=== PATIENT | female | born 1970 | race Caucasian/White ===

== ENCOUNTER 2022-02-25 09:41 | Observation (INO) ==
[2022-02-25] MEDS ORDERED: ONDANSETRON INJ 2 MG/ML 2 ML VIAL IV STA (10:04)
[2022-02-25] MEDS ORDERED: SODIUM CHLORIDE 0.9% 500 ML IV STA (10:04)
[2022-02-25] MEDS ORDERED: MoRPHine SULFATE 4 MG/ML 1 ML CARP\\VIAL IV STA ×2 (10:04→12:11)
--- NOTE | 2022-02-25 10:08 | Emergency Department Note ---
Impression & Plan Abdominal pain, UTI (urinary tract infection) ADMIT ED Provider Note HPI: Patient is a 51-year-old female with history of recent gastric bypass procedure performed at [facility] in [place], this was done in November 2021, patient presents the emergency department today with chief complaint of ongoing abdominal discomfort, she states that she had some blood work done yesterday through her home nurse that showed "abnormalities". Patient states that she is concerned because she did not hear anything from her providers at [facility] and therefore she came to the emergency department with her ongoing abdominal pain and concern for her recent abnormal lab work. Patient states she is also had some chills, states she has had some nausea. On arrival here to the ED the patient is hemodynamically stable, she is in no acute distress, she does have a PICC line to the left upper extremity that she tells me is used for fluids and was previously used for TPN although the patient states that she took her self off of this 2 days ago because it was making her feel ill. She states she has had some difficulty with swallowing solid foods, states that she has multiple "strictures" in her stomach that been causing issues since her surgery. Patient states that she does have some nausea in addition to her ongoing abdominal pain that has been there for several months after surgery. Patient saturating well on room air on arrival, she is afebrile, she is otherwise hemodynamically stable and nontoxic-appearing on my initial assessment. ROS: -GI: Abdominal pain, nausea, recent surgery *10 point review systems was conducted and is otherwise negative unless stated above *Outpatient medications and allergy history reviewed PE: General: Alert, NAD HEENT: Normocephalic, atraumatic Eyes: Extraocular eye movement is intact, no scleral erythema Pulmonary: Clear to auscultation bilaterally, no wheezing Cardio: Regular rate and rhythm GI: Abdomen is soft, moderate tenderness diffusely to palpation without guarding or rigidity : No suprapubic tenderness MSK: No evidence of trauma or malformation of the extremities, no edema Skin: No evidence of rash, PICC line in place to left upper extremity without any surrounding erythema or drainage Neuro: Alert, no focal deficits Psychiatric: Cooperative security monitor: - An order was placed for continuous cardiac monitoring - Patient was noted to be in sinus rhythm with rate of 85 EKG: Rate: 80 Rhythm: Sinus rhythm with first-degree AV block Intervals: HI interval 224 ms, otherwise within normal limits ST changes: No ST elevation Time: 1114 Medical Decision Making: Patient presented to the emergency department with multiple issues, states she has been having some increasing abdominal comfort over the past several months that she had a gastric bypass surgery done in [place] through [facility]. Patient states she is also had some chills, she has had some nausea, shortly after arrival IV was established, lab work obtained, patient was placed on compliance monitor. Lab work is largely unremarkable, no critical electrolyte abnormalities are noted, no transaminitis, bilirubin is normal. No leukocytosis, hemoglobin is stable. CT imaging of the abdomen pelvis was obtained that does not show any evidence of any acute surgical abnormality within the abdomen or pelvis, post operative changes are noted given the patient's recent gastric bypass. On reassessment patient stated she was feeling improved following IV morphine, discussed outpatient follow-up plan with her providers through [facility]. Shortly after this discussion the patient stated to the bedside RN that she was having some chills, stated she was not feeling well for discharge. She became tachycardic, repeat temperature shows fever at 39.5, given this patient was given IV Tylenol, IV fluid, blood cultures ordered, lactic acid ordered, procalcitonin ordered. COVID-19 testing was ordered and is negative, this is per laboratory report on the phone, as there was some difficulty getting the test to crossover secondary to a technical issue with the EMR.Urinalysis was obtained and shows evidence of possible urinary tract infection. Will send for culture. Patient will be treated with ceftriaxone. Patient states that this time she does not feel well for discharge, given her tachycardia and fever I think it is reasonable to admit her for IV antibiotic therapy over concern for early sepsis. Urinalysis appears to be the source of infection at this time. Lactic acid is pending, procalcitonin is pending. Patient was ordered 2 L of IV fluid and none further secondary to concern for fluid overload given history of CHF. [facility], and the patient was admitted to the hospitalist service for further management. Diagnosis: 1. Urinary tract infection, acute 2. Acute on chronic abdominal pain 3. Fever 4. Tachycardia Disposition: Admission Valentino Ryder DO Emergency Medicine Past Med/Surg History Social History Smoking Status: Never smoker Feels Safe at Home: Yes Allergies Allergies Allergy/AdvReac Type Severity Reaction Status Date / Time amitriptyline Allergy Intermediate jittery, Unverified 02/25/22 12:01 restlessness, insomnia haloperidol [From Haldol] Allergy Intermediate agitation Unverified 02/25/22 12:01 latex Allergy Intermediate rash, Unverified 02/25/22 11:57 itching metoclopramide [From Reglan] Allergy Intermediate jittery, Unverified 02/25/22 12:01 restlessness, insomnia nortriptyline Allergy Intermediate jttery, Unverified 02/25/22 12:01 restlessness, insomnia prochlorperazine Allergy Intermediate jittery, Unverified 02/25/22 12:01 [From Compazine] restlessness, insomnia Home Meds Home Medications Medication Instructions Recorded Confirmed alprazolam 0.5 mg tablet 0.5 mg PO DAILY 02/25/22 02/25/22 alteplase 2 mg intra-catheter 2 mg INTRA-CATHETER DIRECTED 02/25/22 02/25/22 solution (Cathflo Activase) dicyclomine 20 mg tablet 20 mg PO BID PRN 02/25/22 02/25/22 epinephrine 0.3 mg/0.3 mL 0.3 mg IM Q4H PRN 02/25/22 02/25/22 injection, auto-injector furosemide 20 mg tablet 20 mg PO BID 02/25/22 02/25/22 gabapentin 300 mg capsule 600 mg PO BID 02/25/22 02/25/22 hyoscyamine sulfate 0.125 mg 0.125 mg SUBLINGUAL DAILY PRN 02/25/22 02/25/22 sublingual tablet metoprolol tartrate 25 mg tablet 25 mg PO BID 02/25/22 02/25/22 nitroglycerin 0.3 mg sublingual 0.3 mg SUBLINGUAL DIRECTED PRN 02/25/22 02/25/22 tablet ondansetron 4 mg disintegrating 4 mg TRANSLINGUAL DIRECTED PRN 02/25/22 tablet oxycodone 5 mg tablet 5 mg PO DIRECTED PRN 02/25/22 02/25/22 pantoprazole 20 mg tablet,delayed 20 mg PO BID 02/25/22 02/25/22 release pediatric multivitamin no.25-folic 1 tab PO DAILY 02/25/22 02/25/22 acid 300 mcg chewable tablet (Flintstones Multivitamin) sacubitril 24 mg-valsartan 26 mg 1 tab PO BID 02/25/22 02/25/22 tablet (Entresto) scopolamine base 1 mg over 3 days 1 patch TOPICAL Q72H PRN 02/25/22 02/25/22 transdermal patch sumatriptan succinate 100 mg tablet 100 mg PO DIRECTED PRN 02/25/22 02/25/22 topiramate 100 mg tablet 100 mg PO BID 02/25/22 02/25/22 zolpidem 10 mg tablet 10 mg PO HS 02/25/22 02/25/22 Previous Rx's Medication Instructions Recorded oxycodone-acetaminophen 5 mg-325 1 tab PO Q6H PRN #14 tab 02/25/22 mg tablet (Percocet) Results & Data (ED) Vital Signs Vital Signs - 24 hr 02/25/22 09:42 02/25/22 09:43 02/25/22 10:04 Temperature 36.7 C Temperature Source Temporal Artery Scan Pulse Rate 81 96 H 78 Pulse Rate [Apical] 78 Pulse Rhythm Regular Pulse Rhythm [Apical] Pulse Strength [Apical] Respiratory Rate 17 18 17 Respiratory Effort / Characteristics Non-Labored Respiratory Depth Normal Respiratory Pattern Regular Blood Pressure 129/82 Blood Pressure [Right Arm] 129/82 Blood Pressure Mean 97 Blood Pressure Mean [Right Arm] 97 Pulse Oximetry 96 99 97 Oxygen Delivery Method Room Air Room Air Room Air Sepsis Recent Fever Within 48 Hours No Sepsis New/Unexplained Change in Mental Status No Sepsis Action Taken by Nursing No Action Required 02/25/22 13:42 02/25/22 15:00 02/25/22 16:14 Temperature 39.5 C H 39.4 C H Temperature Source Oral Oral Pulse Rate Pulse Rate [Apical] 75 119 H 117 H Pulse Rhythm Pulse Rhythm [Apical] Regular Pulse Strength [Apical] Normal Normal Respiratory Rate 17 18 20 Respiratory Effort / Characteristics Non-Labored Non-Labored Respiratory Depth Normal Normal Respiratory Pattern Blood Pressure Blood Pressure [Right Arm] 129/82 129/87 Blood Pressure Mean Blood Pressure Mean [Right Arm] 97 101 Pulse Oximetry 99 95 94 Oxygen Delivery Method Room Air Room Air Room Air Sepsis Recent Fever Within 48 Hours Sepsis New/Unexplained Change in Mental Status Sepsis Action Taken by Nursing Laboratory Data Result diagrams: 02/25/22 10:50 02/25/22 10:50 Lab Results 02/25/22 02/25/22 02/25/22 Range/Units 10:50 10:50 10:50 WBC 4.40 L (4.8-10.8) K/uL RBC 3.95 L (4.2-5.4) M/uL Hgb 11.9 L (12.0-16.0) g/dL Hct 37.1 (37-47) % MCV 93.9 (80-100) fL MCH 30.1 (25-34) pg MCHC 32.1 (32-36) g/dL RDW Std Deviation 46.2 (36.4-46.3) fL RDW Coeff of [place] 13.3 (11.5-14.5) % Plt Count 208 (130-400) K/uL MPV 10.9 H (7.4-10.4) fL Immature Gran % (Auto) 0.2 % Neut % (Auto) 60.7 % Lymph % (Auto) 20.9 % [place] % (Auto) 17.3 % Eos % (Auto) 0.7 % Baso % (Auto) 0.2 % Neut # (Auto) 2.67 (1.4-6.5) K/uL Lymph # (Auto) 0.92 L (1.2-3.4) K/uL [place] # (Auto) 0.76 H (0.11-0.59) K/uL Eos # (Auto) 0.03 (0-0.5) K/uL Baso # (Auto) 0.01 (0-0.2) K/uL Immature Gran # (Auto) 0.01 (0.00-0.02) K/uL PT 12.0 (9.0-12.0) Seconds INR 1.1 (0.9-1.1) Sodium 140 (136-145) mmol/L Potassium 3.5 (3.5-5.1) mmol/L Chloride 109 H (98-107) mmol/L Carbon Dioxide 23 (21-32) mmol/L Anion Gap 8 (3-11) BUN 14 (6-23) mg/dl Creatinine 0.79 (0.6-1.2) mg/dl Est Cr Clr Drug Dosing 100.1 ml/min Est GFR ( Amer) 101.2 ml/min Est GFR (Non-Af Amer) 87.3 ml/min BUN/Creatinine Ratio 17.7 (10-20) Glucose 91 (70-99(Fasting)) mg/dl Calcium 8.4 L (8.5-10.1) mg/dl Total Bilirubin 0.7 (0.2-1.0) mg/dl AST 28 (13-39) U/L ALT 29 (7-52) U/L Alkaline Phosphatase 84 (34-104) U/L Total Protein 6.4 (6.0-8.3) gm/dl Albumin 3.6 (3.4-5.0) gm/dl Globulin 2.8 (2.5-4.0) gm/dl Albumin/Globulin Ratio 1.3 (0.9-2) Lipase 41 (11-82) U/L Urine Color Urine Appearance (Clear) Urine pH (4.5-7.5) Ur Specific [place] (1.000-1.030) Urine Protein (Negative) Urine Glucose (UA) (Negative) Urine Ketones (Negative) Urine Blood (Negative) Urine Nitrite (Negative) Urine Bilirubin (Negative) Urine Urobilinogen (Negative) Ur Leukocyte Esterase (Negative) Urine WBC (Auto) (0-5) /hpf Urine RBC (Auto) (0-4) /hpf U Hyaline Cast (Auto) (0-5) /lpf U Epithel Cells (Auto) (0-5) /lpf Urine Bacteria (Auto) (Negative) Urine Crystals Calcium Oxalate Crystal (None Prsent) 02/25/22 Range/Units 10:50 WBC (4.8-10.8) K/uL RBC (4.2-5.4) M/uL Hgb (12.0-16.0) g/dL Hct (37-47) % MCV (80-100) fL MCH (25-34) pg MCHC (32-36) g/dL RDW Std Deviation (36.4-46.3) fL RDW Coeff of [place] (11.5-14.5) % Plt Count (130-400) K/uL MPV (7.4-10.4) fL Immature Gran % (Auto) % Neut % (Auto) % Lymph % (Auto) % [place] % (Auto) % Eos % (Auto) % Baso % (Auto) % Neut # (Auto) (1.4-6.5) K/uL Lymph # (Auto) (1.2-3.4) K/uL [place] # (Auto) (0.11-0.59) K/uL Eos # (Auto) (0-0.5) K/uL Baso # (Auto) (0-0.2) K/uL Immature Gran # (Auto) (0.00-0.02) K/uL PT (9.0-12.0) Seconds INR (0.9-1.1) Sodium (136-145) mmol/L Potassium (3.5-5.1) mmol/L Chloride (98-107) mmol/L Carbon Dioxide (21-32) mmol/L Anion Gap (3-11) BUN (6-23) mg/dl Creatinine (0.6-1.2) mg/dl Est Cr Clr Drug Dosing ml/min Est GFR ( Amer) ml/min Est GFR (Non-Af Amer) ml/min BUN/Creatinine Ratio (10-20) Glucose (70-99(Fasting)) mg/dl Calcium (8.5-10.1) mg/dl Total Bilirubin (0.2-1.0) mg/dl AST (13-39) U/L ALT (7-52) U/L Alkaline Phosphatase (34-104) U/L Total Protein (6.0-8.3) gm/dl Albumin (3.4-5.0) gm/dl Globulin (2.5-4.0) gm/dl Albumin/Globulin Ratio (0.9-2) Lipase (11-82) U/L Urine Color Dark Yellow Urine Appearance Turbid A (Clear) Urine pH 5.5 (4.5-7.5) Ur Specific [place] 1.027 (1.000-1.030) Urine Protein Trace H (Negative) Urine Glucose (UA) Negative (Negative) Urine Ketones 2+ H (Negative) Urine Blood Negative (Negative) Urine Nitrite Positive A (Negative) Urine Bilirubin 2+ H (Negative) Urine Urobilinogen Negative (Negative) Ur Leukocyte Esterase 1+ H (Negative) Urine WBC (Auto) 10-30 H (0-5) /hpf Urine RBC (Auto) 5-10 H (0-4) /hpf U Hyaline Cast (Auto) 10-30 H (0-5) /lpf U Epithel Cells (Auto) >30 H (0-5) /lpf Urine Bacteria (Auto) 4+ H (Negative) Urine Crystals Not Reportable Calcium Oxalate Crystal Present A (None Prsent) Administered Medications Discontinued Medications Acetaminophen (Acetaminophen 500 Mg Tab) 1,000 mg PO NOW STA Stop: 02/25/22 15:22 Last Admin: 02/25/22 15:57 Dose: Not Given Documented by: [id number] Acetaminophen (Acetaminophen 1000 Mg/100 Ml Iv) Confirm Administered Dose 1,000 mg IV .STK-MED ONE Stop: 02/25/22 15:39 Last Admin: 02/25/22 15:43 Dose: 1,000 mg Documented by: [id number] Acetaminophen (Acetaminophen 500 Mg Tab) 1,000 mg PO NOW STA Stop: 02/25/22 15:49 Last Admin: 02/25/22 15:57 Dose: Not Given Documented by: [id number] Acetaminophen (Acetaminophen 1000 Mg/100 Ml Iv) 1,000 mg IV ONCE ONE Stop: 02/25/22 16:06 Last Admin: 02/25/22 15:45 Dose: 1,000 mg Documented by: [id number] Sodium Chloride (Nss) 500 mls @ 999 mls/hr IV .Q31M STA Stop: 02/25/22 10:34 Last Infusion: 02/25/22 12:14 Dose: 0 mls/hr Documented by: [id number] Admin: 02/25/22 11:00 Dose: 999 mls/hr Documented by: [id number] Promethazine HCl 6.25 mg/ (Sodium Chloride) 50.25 mls @ 201 mls/hr IV NOW STA Stop: 02/25/22 12:25 Last Infusion: 02/25/22 13:24 Dose: 0 mls/hr Documented by: [id number] Admin: 02/25/22 12:55 Dose: 201 mls/hr Documented by: [id number] Sodium Chloride (Nss 1000ml) 1,000 mls @ 999 mls/hr IV .Q1H1M ONE Stop: 02/25/22 14:52 Last Infusion: 02/25/22 15:30 Dose: 0 mls/hr Documented by: [id number] Admin: 02/25/22 14:33 Dose: 999 mls/hr Documented by: [id number] Ioversol (Optiray 320 100ml) 96 ml IV ONCE ONE Stop: 02/25/22 12:45 Last Admin: 02/25/22 12:47 Dose: 96 ml Documented by: [id number] Morphine Sulfate (Morphine Sulfate 4 Mg/Ml 1 Ml Carp\\Vial) 4 mg IV NOW STA Stop: 02/25/22 10:05 Last Admin: 02/25/22 11:01 Dose: 4 mg Documented by: [id number] Morphine Sulfate (Morphine Sulfate 4 Mg/Ml 1 Ml Carp\\Vial) 4 mg IV NOW STA Stop: 02/25/22 12:12 Last Admin: 02/25/22 12:19 Dose: 4 mg Documented by: [id number] Ondansetron HCl (Ondansetron Inj 2 Mg/Ml 2 Ml Vial) 4 mg IV NOW STA Stop: 02/25/22 10:05 Last Admin: 02/25/22 11:01 Dose: 4 mg Documented by: [id number] Imaging Data Radiologist's Impression: Abdomen/Pelvis CT 02/25/22 10:04 CT SCAN OF THE ABDOMEN AND PELVIS WITH IV CONTRAST CLINICAL HISTORY: Generalized abdominal pain. Recent gastric bypass surgery. COMPARISON STUDY: No priors. TECHNIQUE: Following the IV administration of 96 cc of Optiray 320, CT scan of the abdomen and pelvis is performed from the lung bases to the proximal femora. Images are reviewed in the axial, sagittal, and coronal planes. IV contrast was administered without complication. A dose lowering technique was utilized adhering to the principles of ALARA. CT DOSE: 696.48 mGy.cm FINDINGS: Lung bases: The heart is top normal in size and without pericardial effusion. There are scattered calcified granulomas. The lung bases are otherwise clear. Liver: The contrast-enhanced liver is enlarged, measuring 21.3 cm in length. The liver demonstrates diffusely diminished attenuation consistent with hepatic steatosis. There are foci of fatty sparing. There is no intrahepatic biliary ductal dilatation. The hepatic veins and portal veins are patent. Gallbladder: Surgically absent noting clips in the gallbladder fossa. Spleen: The spleen is mildly enlarged measuring 13.5 cm in length. Pancreas: Unremarkable. Adrenal glands: Unremarkable. Kidneys: The contrast enhanced kidneys are normal in size and without hydronephrosis. The kidneys enhance symmetrically. Abdominal vasculature: The abdominal aorta is normal in course and caliber. Stomach and bowel: There is a tiny hiatal hernia. Postoperative changes consistent with a history of Eldon-en-Y gastric bypass surgery. No bowel obstruction is seen. The appendix is well-visualized and normal. Peritoneum: There is no intraperitoneal free air or abdominal ascites. Lymphadenopathy: None. Pelvic viscera: The bladder is normal as visualized. The uterus is surgically absent. No adnexal lesion is seen. Skeletal structures: No lytic or blastic lesions are seen. IMPRESSION: 1. No acute infectious or inflammatory findings are identified in the abdomen or pelvis. 2. Postoperative change is consistent with a history of gastric bypass surgery. No bowel obstruction is seen. 3. Hepatomegaly and hepatic steatosis. 4. Mild splenomegaly. 5. Additional findings as above. ACT 112: Negative or not required by law. Electronically signed by: Yash Kovacs M.D. 02/25/2022 1:13 PM Chest X-Ray 02/25/22 16:15 XR chest 1V portable HISTORY: 51 years-old Female fever acute fever COMPARISON: CT abdomen and pelvis of same day TECHNIQUE: Portable AP view of the chest FINDINGS: The cardiac silhouette is upper limits of normal in size. Left-sided PICC distal tip is noted in the expected location of the upper to mid SVC. Mild linear subsegmental atelectasis versus scarring within the right midlung. No pneumothorax, pleural effusion, airspace consolidation or overt pulmonary edema. Bones of the chest appear grossly intact. Surgical suture material projects over the stomach. IMPRESSION: No acute process. ACT 112: Negative or not required by law. The above report was generated using voice recognition software. It may contain grammatical, syntax or spelling errors. Electronically signed by: Lino Mandujano M.D. 02/25/2022 4:47 PM Discharge Plan Visit Data Chief Complaint: Illness Stated Complaint: S/P GASTRIC BYPASS,CHILLS,FEVER,ABD PAIN,N/V ED Provider: Valentino Ryder Discharge Problem: Abdominal pain, UTI (urinary tract infection) Patient Disposition: Home - Self-Care Condition: Good Discharge Instructions Hao/Other Patient Handouts: Abdominal Pain Activity Restrictions/Additional Instructions: Please follow-up with your primary care doctor in 2 to 3 days for reassessment. Please follow-up with your bariatric surgery team through [facility] as advised/scheduled. Please return to the emergency department if you have any new or worsening symptoms. Forms Stand Alone Forms: My [facility], Virtual Emergency Department, Important Visit Information Prescriptions Prescriptions: New oxycodone-acetaminophen [Percocet] 5-325 mg tablet 1 tab PO Q6H PRN (Reason: pain) Qty: 14 RF: 0 No Action nitroglycerin 0.3 mg Tablet, Sublingual 0.3 mg sublingual DIRECTED PRN (Reason: Angina) RF: 0 sumatriptan succinate 100 mg tablet 100 mg PO DIRECTED PRN (Reason: Migraine Headache) RF: 0 pantoprazole 20 mg tablet,delayed release (DR/EC) 20 mg PO BID RF: 0 alprazolam 0.5 mg tablet 0.5 mg PO DAILY RF: 0 dicyclomine [Bentyl] 20 mg Tablet 20 mg PO BID PRN (Reason: Gi Upset) RF: 0 hyoscyamine sulfate 0.125 mg tablet, sublingual 0.125 mg sublingual DAILY PRN (Reason: Nausea) RF: 0 gabapentin 300 mg capsule 600 mg PO BID RF: 0 furosemide 20 mg Tablet 20 mg PO BID RF: 0 epinephrine [Epi E-Z Pen] 0.3 mg/0.3 mL Auto-Injector 0.3 mg IM Q4H PRN (Reason: Allergic Symptoms) RF: 0 zolpidem 10 mg tablet 10 mg PO HS RF: 0 scopolamine base 1 mg over 3 days patch 3 day 1 patch topical Q72H PRN (Reason: Nausea) RF: 0 ondansetron 4 mg tablet,disintegrating 4 mg translingual DIRECTED PRN (Reason: Nausea) RF: 0 topiramate 100 mg tablet 100 mg PO BID RF: 0 Cathflo Activase 2 mg recon soln 2 mg INTRA-CATHETER DIRECTED RF: 0 oxycodone 5 mg tablet 5 mg PO DIRECTED PRN (Reason: Pain) RF: 0 metoprolol tartrate 25 mg tablet 25 mg PO BID RF: 0 Flintstones Multivitamin 300 mcg Tablet,Chewable 1 tab PO DAILY RF: 0 Entresto 24-26 mg tablet 1 tab PO BID RF: 0 Referrals Referrals: Summer Villegas [Primary Care Provider] -
[2022-02-25 11:19] LABS: INR 1.1 (0.9-1.1)
[2022-02-25 11:37] LABS: Albumin Globulin Ratio 1.3 (0.9-2); Albumin Level 3.6 gm/dl (3.4-5.0); BUN Creatinine Ratio 17.7 (10-20); Bilirubin,Total 0.7 mg/dl (0.2-1.0); Calcium 8.4 mg/dl (8.5-10.1); Creatinine Clr Calc Pharmacy 100.1 ml/min; Est GFR (African American) 101.2 ml/min; Est GFR (Non-African American) 87.3 ml/min; Globulin 2.8 gm/dl (2.5-4.0); Potassium 3.5 mmol/L (3.5-5.1); Total Protein 6.4 gm/dl (6.0-8.3)
[2022-02-25 11:45] LABS: Basophils # (auto) 0.01 K/uL (0-0.2); Basophils % (auto) 0.2 %; Eosinophils # (auto) 0.03 K/uL (0-0.5); Eosinophils % (auto) 0.7 %; Hematocrit (blood only) 37.1 % (37-47); Hemoglobin 11.9 g/dL (12.0-16.0); Immature Granulocytes # (auto) 0.01 K/uL (0.00-0.02); Immature Granulocytes % (auto) 0.2 %; Lymphocytes # (auto) 0.92 K/uL (1.2-3.4); Lymphocytes % (auto) 20.9 %; Mean Corpuscular Hemoglobin 30.1 pg (25-34); Mean Corpuscular Hgb Conc 32.1 g/dL (32-36); Mean Corpuscular Volume 93.9 fL (80-100); Mean Platelet Volume 10.9 fL (7.4-10.4); Monocytes # (auto) 0.76 K/uL (0.11-0.59); Monocytes % (auto) 17.3 %; Neutrophils # (auto) 2.67 K/uL (1.4-6.5); Neutrophils % (auto) 60.7 %; Platelet Count 208 K/uL (130-400); RDW Coefficient of Variation 13.3 % (11.5-14.5); RDW Standard Deviation 46.2 fL (36.4-46.3); Red Blood Count 3.95 M/uL (4.2-5.4)
[2022-02-25] MEDS ORDERED: PROMETHAZINE HCL 6.25 MG in SODIUM CHLORIDE 0.9% 50 ML IV STA (12:11)
[2022-02-25] MEDS ORDERED: OPTIRAY 320 100ml IV ONE (12:44)
--- NOTE | 2022-02-25 13:16 | CT Scan Report ---
CT SCAN OF THE ABDOMEN AND PELVIS WITH IV CONTRAST CLINICAL HISTORY: Generalized abdominal pain. Recent gastric bypass surgery. COMPARISON STUDY: No priors. TECHNIQUE: Following the IV administration of 96 cc of Optiray 320, CT scan of the abdomen and pelvi s is performed from the lung bases to the proximal femora. Images are reviewed in the axial, sagittal , and coronal planes. IV contrast was administered without complication. A dose lowering technique wa s utilized adhering to the principles of ALARA. CT DOSE: 696.48 mGy.cm FINDINGS: Lung bases: The heart is top normal in size and without pericardial effusion. There are scattered trever cified granulomas. The lung bases are otherwise clear. Liver: The contrast-enhanced liver is enlarged, measuring 21.3 cm in length. The liver demonstrates d iffusely diminished attenuation consistent with hepatic steatosis. There are foci of fatty sparing. T here is no intrahepatic biliary ductal dilatation. The hepatic veins and portal veins are patent. Gallbladder: Surgically absent noting clips in the gallbladder fossa. Spleen: The spleen is mildly enlarged measuring 13.5 cm in length. Pancreas: Unremarkable. Adrenal glands: Unremarkable. Kidneys: The contrast enhanced kidneys are normal in size and without hydronephrosis. The kidneys enh ance symmetrically. Abdominal vasculature: The abdominal aorta is normal in course and caliber. Stomach and bowel: There is a tiny hiatal hernia. Postoperative changes consistent with a history of Eldon-en-Y gastric bypass surgery. No bowel obstruction is seen. The appendix is well-visualized and normal. Peritoneum: There is no intraperitoneal free air or abdominal ascites. Lymphadenopathy: None. Pelvic viscera: The bladder is normal as visualized. The uterus is surgically absent. No adnexal lesi on is seen. Skeletal structures: No lytic or blastic lesions are seen. IMPRESSION: 1. No acute infectious or inflammatory findings are identified in the abdomen or pelvis. 2. Postoperative change is consistent with a history of gastric bypass surgery. No bowel obstruction is seen. 3. Hepatomegaly and hepatic steatosis. 4. Mild splenomegaly. 5. Additional findings as above. ACT 112: Negative or not required by law. Electronically signed by: Yash Kovacs M.D. 02/25/2022 1:13 PM
[2022-02-25] MEDS ORDERED: SODIUM CHLORIDE 0.9% 1000ML 1,000 ML IV ONE ×2 (13:52→16:21)
[2022-02-25] MEDS ORDERED: PERCOCET 5/325MG HOMEPACK PO ONE (14:25)
[2022-02-25 15:12] LABS: Appearance Urine Turbid (Clear); Bacteria Urine Automated 4+ (Negative); Blood Urine Negative (Negative); Color Urine Dark Yellow; Epithelial Cell Urine Auto >30 /lpf (0-5); Glucose Urine UA Negative (Negative); Ketones Urine 2+ (Negative); Leukocyte Esterase Urine 1+ (Negative); Nitrite Urine Positive (Negative); Protein Urine Trace (Negative); Specific Gravity Urine 1.027 (1.000-1.030); Urobilinogen Urine Negative (Negative); pH Urine 5.5 (4.5-7.5)
[2022-02-25 15:14] LABS: Bilirubin Urine 2+ (Negative)
[2022-02-25] MEDS ORDERED: ACETAMINOPHEN 500 MG TAB PO STA ×2 (15:21→15:48)
[2022-02-25 15:23] LABS: Calcium Oxalate Crystals Urine Present (None Prsent)
[2022-02-25] MEDS ORDERED: ACETAMINOPHEN 1000 MG/100 ML IV IV ONE ×2 (15:38→16:05)
--- NOTE | 2022-02-25 16:20 | Electrocardiogram Report ---
Test Reason : Blood Pressure : / mmHG Vent. Rate : 080 BPM Atrial Rate : 080 BPM P-R Int : 224 ms QRS Dur : 094 ms QT Int : 406 ms P-R-T Axes : 051 -24 -06 degrees QTc Int : 468 ms Sinus rhythm with 1st degree A-V block Poor R wave progression, consider anterior MN vs. lead placement vs. LVH T-wave inversion in Anteroseptal leads , consider ischemia Abnormal ECG No previous ECGs available Confirmed by Eran Sewell ([id number]) on 02/25/2022 4:20:28 PM Referred By: REFERRED SELF Confirmed By:Eran Sewell
[2022-02-25] MEDS ORDERED: cefTRIAXone SODIUM 2,000 MG/70 ML BAG IV STA (16:21)
--- NOTE | 2022-02-25 16:49 | XRay Report ---
XR chest 1V portable HISTORY: 51 years-old Female fever acute fever COMPARISON: CT abdomen and pelvis of same day TECHNIQUE: Portable AP view of the chest FINDINGS: The cardiac silhouette is upper limits of normal in size. Left-sided PICC distal tip is noted in the expected location of the upper to mid SVC. Mild linear subsegmental atelectasis versus scarring withi n the right midlung. No pneumothorax, pleural effusion, airspace consolidation or overt pulmonary erik ma. Bones of the chest appear grossly intact. Surgical suture material projects over the stomach. IMPRESSION: No acute process. ACT 112: Negative or not required by law. The above report was generated using voice recognition software. It may contain grammatical, syntax o r spelling errors. Electronically signed by: Lino Mandujano M.D. 02/25/2022 4:47 PM
--- NOTE | 2022-02-25 18:03 | History & Physical Report ---
Date of Service February 25, 2022 Assessment & Plan (1) Sepsis: Plan: Patient presents with spectrum of complaints- but with fever for past 3 days noted with tachycardia and hypotensive episode in the EMD - - lactate negative, PCT elevated, WBC mild leukopenia, febrile - HX of previous gastric bypass surgery with negative CT abdomen for any leaks or stranding - Pulmonary with calcified granulomas- without opacities or dyspnea- aspergillus and fungitell sent- previous on TPN - PICC line in place but appears clean at insertion site- culture drawn from PICC- remove pending BC or persistent fevers- ECHO in am - Blood cultures x2 sets drawn - Urine is current source- with oxylate crystal as well seen in UA- could have passed renal stone - MRSA swab with prolonged hospitalization and instrumentation x2 - ECHO in am - Rocephin for now 2 GM- broaden out if needed but currently responding with decrease in temp/HR/BP (2) H/O gastric bypass: Plan: As above- could consider repeating barium swallow evaluation if source remains unclear - Surgery done in [facility] network - not on any other vitamin supplementation other than MVI- she reports not being able to take - remains with nausea- continue with Zofran, patient declined Compazine, Phenergan if refractory nausea - Will send B12, Vitamin D level, FE, and Thiamine (3) HFrEF (heart failure with reduced ejection fraction): Plan: By report from patient - likely NICM with reported EF at 35% - repeat ECHO in am - She has stopped previous disease modifying medications (4) Complications of gastric bypass surgery: Plan: As above- required second surgery for stricture she reports - may be beneficial to request reports if will aid in current managment - Remains with persistent nausea and decrease oral intake - Start with clears continue PPI (5) Migraine: Plan: Patient on Topamax and Sumatriptan at home - she reports that triptan does not work- this is what we have on formulary - continue above - at this time avoid further pharmacological mixing agents History of Present Illness Primary Care Provider: Summer Villegas 51 YOF with medical history of: HFrEF/NICM, HTN, Obesity, ovarian cysts, MGUS. Patient comes to the EMD today for complaints of 3 days of fevers and abdominal pain/back pain. The patient states that this has been ongoing for the past 3 days and is associated with pain that strated in her lower back and then worked its way around the front of abdomen down to her groin. She is unsure if she has passed any kidney stones. She was evaluated in the EMD and upon preparedness for discharge she became tachycardic, had fever, and decrease BP. She was given 2.5 L of crystalloid, had blood cultures performed, and UA. She had routine labs performed that included blood culture x2 sets, UA, CXR, PCT, CT of abdomen and pelvis with contrast and CXR. Her lab work is notable for WBC of 4.4, BMP unremarkable, PCT 4.2, no lactate. UA notable for turbid appearance, LE- NIT, RBC, WBC 10-30 with > 30 EPis and 4+ bacteria. She was started on Rocephin 2 GM IV. Hospitalist was consulted for admission. Patient will be admitted to continue evaluate source of above as well as treat for current complicated UTI. Continue Rocephin for now. MRSA swab with recent extended hospital admissions. Overall we have no records available for review. The patient normally gets most of her care through [facility] and follows with cardiology at [place]. The patient most recently had Eldon-en- Y gastric bypass surgery completed in [facility] in November 2021. She reports extended stay and re-operation secondary to strictures. This lead to her remaining to have difficulty swallowing and eating, remaining with pain in her esophagus and abdomen. She was discharged with TPN and IVF which, is managed through home health. She reports that about 3 weeks ago she has stopped her TPN. She remains with a PICC line to her left arm and that is ~2 months old. The site itself is without evidence of infection. Blood cultures were obtained from PICC as well as peripheral. She also endorses that she follows with cardiology for history of heart failure which she reports that her EF is 35% she was previously on BB, Entresto and this was stopped by her creative writer prior to her Gastric Bypass surgery. She also reports possible history of MGUS as well as workup for Lupus. 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 is: NEGATIVE Allergies Allergy/AdvReac Type Severity Reaction Status Date / Time amitriptyline Allergy Intermediate jittery, Unverified 02/25/22 12:01 restlessness, insomnia haloperidol [From Haldol] Allergy Intermediate agitation Unverified 02/25/22 12:01 latex Allergy Intermediate rash, Unverified 02/25/22 11:57 itching metoclopramide [From Reglan] Allergy Intermediate jittery, Unverified 02/25/22 12:01 restlessness, insomnia nortriptyline Allergy Intermediate jttery, Unverified 02/25/22 12:01 restlessness, insomnia prochlorperazine Allergy Intermediate jittery, Unverified 02/25/22 12:01 [From Compazine] restlessness, insomnia Home Medications Medication Instructions Recorded Confirmed Type alprazolam 0.5 mg tablet 0.5 mg PO DAILY 02/25/22 02/25/22 History alteplase 2 mg intra-catheter 2 mg INTRA-CATHETER DIRECTED 02/25/22 02/25/22 History solution (Cathflo Activase) dicyclomine 20 mg tablet 20 mg PO BID PRN 02/25/22 02/25/22 History epinephrine 0.3 mg/0.3 mL 0.3 mg IM Q4H PRN 02/25/22 02/25/22 History injection, auto-injector furosemide 20 mg tablet 20 mg PO BID 02/25/22 02/25/22 History gabapentin 300 mg capsule 600 mg PO BID 02/25/22 02/25/22 History hyoscyamine sulfate 0.125 mg 0.125 mg SUBLINGUAL DAILY PRN 02/25/22 02/25/22 History sublingual tablet metoprolol tartrate 25 mg tablet 25 mg PO BID 02/25/22 02/25/22 History nitroglycerin 0.3 mg sublingual 0.3 mg SUBLINGUAL DIRECTED PRN 02/25/22 02/25/22 History tablet ondansetron 4 mg disintegrating 4 mg TRANSLINGUAL DIRECTED PRN 02/25/22 02/25/22 History tablet oxycodone 5 mg tablet 5 mg PO DIRECTED PRN 02/25/22 02/25/22 History oxycodone-acetaminophen 5 mg-325 1 tab PO Q6H PRN #14 tab 02/25/22 Rx mg tablet (Percocet) pantoprazole 20 mg tablet,delayed 20 mg PO BID 02/25/22 02/25/22 History release pediatric multivitamin no.25-folic 1 tab PO DAILY 02/25/22 02/25/22 History acid 300 mcg chewable tablet ([employer] Multivitamin) sacubitril 24 mg-valsartan 26 mg 1 tab PO BID 02/25/22 02/25/22 History tablet (Entresto) scopolamine base 1 mg over 3 days 1 patch TOPICAL Q72H PRN 02/25/22 02/25/22 History transdermal patch sumatriptan succinate 100 mg tablet 100 mg PO DIRECTED PRN 02/25/22 02/25/22 History topiramate 100 mg tablet 100 mg PO BID 02/25/22 02/25/22 History zolpidem 10 mg tablet 10 mg PO HS 02/25/22 02/25/22 History Past Med/Surg History Medical History (Updated 02/26/22 @ 21:22 by Michelle Adorno MD) Complications of gastric bypass surgery HFrEF (heart failure with reduced ejection fraction) Iron deficiency anemia Joint pain Migraine NICM (nonischemic cardiomyopathy) On total parenteral nutrition (TPN) Ovarian cyst Surgical History (Updated 02/25/22 @ 18:10 by MARTIN Villalta) H/O gastric bypass H/O: hysterectomy Hx of cholecystectomy Social History Smoking Status: Never smoker Hx Alcohol Use: No Hx Substance Use: No Preferred Language: Thai Communication Ability: Effective Fare Collector Required: No Beliefs That Will Affect Care: None marital status: Current Living Situation: Other Feels Safe at Home: Yes Safety Concerns: Feels Safe At This Time Assistive Devices: None Review of Systems Review of Systems: REVIEW OF SYSTEMS: Constitutional: (+) fever, sweats or chills Eyes: No diplopia, no worsening or blurred vision ENT: normal hearing, no trouble swallowing Respiratory: No cough, sputum, dyspnea at rest or on exertion Cardiovascular: No chest pain, tightness or palpitations Abdomen: (+) pain, nausea, vomiting, No diarrhea or constipation Musculoskeletal: (+) leg and joint pain, Neurologic: No weakness, numbness/tingling, or balance problems Psychiatric: (+) anxiety Skin: No rash or itch Physical Exam Physical Exam: PHYSICAL EXAM: General: awake, alert, no apparent distress Head: Normocephalic, atraumatic ENT: PERRLA, EOMI, no pharyngeal exudate, mucous membranes moist Neuro: AAO x 3, speech clear and appropriate, strength intact bilaterally 5/5, sensation intact and equal all extremities and dermatomes, no pronator drift Chest: equal rise and fall of the chest, no accessory muscle use, no heaves or thrills, Clear to auscultation, on room air, Cardiac: Regular rate and rhythm, telemetry reviewed- sinus tach, skin warm dry, cap refill <3 seconds, peripheral pulses +2 no JVD, no murmur, no edema GI: NABS x 4 quadrants, soft, tender suprapubic : Spontaneously voiding, no pain, no CVA tenderness, Extremities: Normal inspection, no peripheral edema or erythema, calfs nontender to palpation Psych: anxious Skin: no rash or erythema Results & Data Results & Data ([facility]) Vital Signs (Past 12 Hours) Vital Signs Temp Pulse Pulse Resp BP BP Pulse Ox 02/25/22 16:14 39.4 C H 117 H 20 94 02/25/22 15:00 39.5 C H 119 H 18 129/87 95 02/25/22 13:42 75 17 129/82 99 02/25/22 10:04 78 17 97 02/25/22 09:43 36.7 C 96 H 18 129/82 99 02/25/22 09:42 81 78 17 129/82 96 Laboratory Results Laboratory Results - last 24 hr 02/25/22 02/25/22 02/25/22 10:50 10:50 10:50 WBC 4.40 L RBC 3.95 L Hgb 11.9 L Hct 37.1 MCV 93.9 MCH 30.1 MCHC 32.1 RDW Std Deviation 46.2 RDW Coeff of Candido 13.3 Plt Count 208 MPV 10.9 H Immature Gran % (Auto) 0.2 Neut % (Auto) 60.7 Lymph % (Auto) 20.9 [place] % (Auto) 17.3 Eos % (Auto) 0.7 Baso % (Auto) 0.2 Neut # (Auto) 2.67 Lymph # (Auto) 0.92 L [place] # (Auto) 0.76 H Eos # (Auto) 0.03 Baso # (Auto) 0.01 Immature Gran # (Auto) 0.01 PT 12.0 INR 1.1 Sodium 140 Potassium 3.5 Chloride 109 H Carbon Dioxide 23 Anion Gap 8 BUN 14 Creatinine 0.79 Est Cr Clr Drug Dosing 100.1 Est GFR ( Amer) 101.2 Est GFR (Non-Af Amer) 87.3 BUN/Creatinine Ratio 17.7 Glucose 91 Lactate Calcium 8.4 L Total Bilirubin 0.7 AST 28 ALT 29 Alkaline Phosphatase 84 Troponin I High Sens Total Protein 6.4 Albumin 3.6 Globulin 2.8 Albumin/Globulin Ratio 1.3 Lipase 41 Procalcitonin Urine Color Urine Appearance Urine pH Ur Specific [place] Urine Protein Urine Glucose (UA) Urine Ketones Urine Blood Urine Nitrite Urine Bilirubin Urine Urobilinogen Ur Leukocyte Esterase Urine WBC (Auto) Urine RBC (Auto) U Hyaline Cast (Auto) U Epithel Cells (Auto) Urine Bacteria (Auto) Urine Crystals Calcium Oxalate Crystal SARS-CoV-2, RNA, NAAT 02/25/22 02/25/22 02/25/22 10:50 14:30 16:21 WBC RBC Hgb Hct MCV MCH MCHC RDW Std Deviation RDW Coeff of Candido Plt Count MPV Immature Gran % (Auto) Neut % (Auto) Lymph % (Auto) [place] % (Auto) Eos % (Auto) Baso % (Auto) Neut # (Auto) Lymph # (Auto) Living[place] # (Auto) Eos # (Auto) Baso # (Auto) Immature Gran # (Auto) PT INR Sodium Potassium Chloride Carbon Dioxide Anion Gap BUN Creatinine Est Cr Clr Drug Dosing Est GFR ( Amer) Est GFR (Non-Af Amer) BUN/Creatinine Ratio Glucose Lactate Calcium Total Bilirubin AST ALT Alkaline Phosphatase Troponin I High Sens Total Protein Albumin Globulin Albumin/Globulin Ratio Lipase Procalcitonin 4.27 H Urine Color Dark Yellow Urine Appearance Turbid A Urine pH 5.5 Ur Specific [place] 1.027 Urine Protein Trace H Urine Glucose (UA) Negative Urine Ketones 2+ H Urine Blood Negative Urine Nitrite Positive A Urine Bilirubin 2+ H Urine Urobilinogen Negative Ur Leukocyte Esterase 1+ H Urine WBC (Auto) 10-30 H Urine RBC (Auto) 5-10 H U Hyaline Cast (Auto) 10-30 H U Epithel Cells (Auto) >30 H Urine Bacteria (Auto) 4+ H Urine Crystals Not Reportable Calcium Oxalate Crystal Present A SARS-CoV-2, RNA, NAAT NEGATIVE 02/25/22 02/25/22 17:09 Unknown WBC RBC Hgb Hct MCV MCH MCHC RDW Std Deviation RDW Coeff of Candido Plt Count MPV Immature Gran % (Auto) Neut % (Auto) Lymph % (Auto) [place] % (Auto) Eos % (Auto) Baso % (Auto) Neut # (Auto) Lymph # (Auto) [place] # (Auto) Eos # (Auto) Baso # (Auto) Immature Gran # (Auto) PT INR Sodium Potassium Chloride Carbon Dioxide Anion Gap BUN Creatinine Est Cr Clr Drug Dosing Est GFR ( Amer) Est GFR (Non-Af Amer) BUN/Creatinine Ratio Glucose Lactate 0.5 Calcium Total Bilirubin AST ALT Alkaline Phosphatase Troponin I High Sens 6.7 Total Protein Albumin Globulin Albumin/Globulin Ratio Lipase Procalcitonin Urine Color Urine Appearance Urine pH Ur Specific [place] Urine Protein Urine Glucose (UA) Urine Ketones Urine Blood Urine Nitrite Urine Bilirubin Urine Urobilinogen Ur Leukocyte Esterase Urine WBC (Auto) Urine RBC (Auto) U Hyaline Cast (Auto) U Epithel Cells (Auto) Urine Bacteria (Auto) Urine Crystals Calcium Oxalate Crystal SARS-CoV-2, RNA, NAAT Diagnostic Findings Abdomen/Pelvis CT 02/25/22 10:04 CT SCAN OF THE ABDOMEN AND PELVIS WITH IV CONTRAST CLINICAL HISTORY: Generalized abdominal pain. Recent gastric bypass surgery. COMPARISON STUDY: No priors. TECHNIQUE: Following the IV administration of 96 cc of Optiray 320, CT scan of the abdomen and pelvis is performed from the lung bases to the proximal femora. Images are reviewed in the axial, sagittal, and coronal planes. IV contrast was administered without complication. A dose lowering technique was utilized adhering to the principles of ALARA. CT DOSE: 696.48 mGy.cm FINDINGS: Lung bases: The heart is top normal in size and without pericardial effusion. There are scattered calcified granulomas. The lung bases are otherwise clear. Liver: The contrast-enhanced liver is enlarged, measuring 21.3 cm in length. The liver demonstrates diffusely diminished attenuation consistent with hepatic steatosis. There are foci of fatty sparing. There is no intrahepatic biliary ductal dilatation. The hepatic veins and portal veins are patent. Gallbladder: Surgically absent noting clips in the gallbladder fossa. Spleen: The spleen is mildly enlarged measuring 13.5 cm in length. Pancreas: Unremarkable. Adrenal glands: Unremarkable. Kidneys: The contrast enhanced kidneys are normal in size and without hydronephrosis. The kidneys enhance symmetrically. Abdominal vasculature: The abdominal aorta is normal in course and caliber. Stomach and bowel: There is a tiny hiatal hernia. Postoperative changes consistent with a history of Eldon-en-Y gastric bypass surgery. No bowel obstruction is seen. The appendix is well-visualized and normal. Peritoneum: There is no intraperitoneal free air or abdominal ascites. Lymphadenopathy: None. Pelvic viscera: The bladder is normal as visualized. The uterus is surgically absent. No adnexal lesion is seen. Skeletal structures: No lytic or blastic lesions are seen. IMPRESSION: 1. No acute infectious or inflammatory findings are identified in the abdomen or pelvis. 2. Postoperative change is consistent with a history of gastric bypass surgery. No bowel obstruction is seen. 3. Hepatomegaly and hepatic steatosis. 4. Mild splenomegaly. 5. Additional findings as above. ACT 112: Negative or not required by law. Electronically signed by: Yash Kovacs M.D. 02/25/2022 1:13 PM Chest X-Ray 02/25/22 16:15 XR chest 1V portable HISTORY: 51 years-old Female fever acute fever COMPARISON: CT abdomen and pelvis of same day TECHNIQUE: Portable AP view of the chest FINDINGS: The cardiac silhouette is upper limits of normal in size. Left-sided PICC distal tip is noted in the expected location of the upper to mid SVC. Mild linear subsegmental atelectasis versus scarring within the right midlung. No pneumothorax, pleural effusion, airspace consolidation or overt pulmonary edema. Bones of the chest appear grossly intact. Surgical suture material projects over the stomach. IMPRESSION: No acute process. ACT 112: Negative or not required by law. The above report was generated using voice recognition software. It may contain grammatical, syntax or spelling errors. Electronically signed by: Lino Mandujano M.D. 02/25/2022 4:47 PM Medications Administered Home Medications alprazolam 0.5 mg tablet 0.5 mg PO DAILY 02/25/22 [History Confirmed 02/25/22] alteplase 2 mg intra-catheter solution (Cathflo Activase) 2 mg INTRA-CATHETER DIRECTED 02/25/22 [History Confirmed 02/25/22] dicyclomine 20 mg tablet 20 mg PO BID PRN 02/25/22 [History Confirmed 02/25/22] epinephrine 0.3 mg/0.3 mL injection, auto-injector 0.3 mg IM Q4H PRN 02/25/22 [History Confirmed 02/25/22] furosemide 20 mg tablet 20 mg PO BID 02/25/22 [History Confirmed 02/25/22] gabapentin 300 mg capsule 600 mg PO BID 02/25/22 [History Confirmed 02/25/22] hyoscyamine sulfate 0.125 mg sublingual tablet 0.125 mg SUBLINGUAL DAILY PRN 02/25/22 [History Confirmed 02/25/22] metoprolol tartrate 25 mg tablet 25 mg PO BID 02/25/22 [History Confirmed 02/25/22] nitroglycerin 0.3 mg sublingual tablet 0.3 mg SUBLINGUAL DIRECTED PRN 02/25/22 [History Confirmed 02/25/22] ondansetron 4 mg disintegrating tablet 4 mg TRANSLINGUAL DIRECTED PRN 02/25/22 [History Confirmed 02/25/22] oxycodone 5 mg tablet 5 mg PO DIRECTED PRN 02/25/22 [History Confirmed 02/25/22] oxycodone-acetaminophen 5 mg-325 mg tablet (Percocet) 1 tab PO Q6H PRN #14 tab 02/25/22 [Rx] pantoprazole 20 mg tablet,delayed release 20 mg PO BID 02/25/22 [History Confirmed 02/25/22] pediatric multivitamin no.25-folic acid 300 mcg chewable tablet ([employer] Multivitamin) 1 tab PO DAILY 02/25/22 [History Confirmed 02/25/22] sacubitril 24 mg-valsartan 26 mg tablet (Entresto) 1 tab PO BID 02/25/22 [History Confirmed 02/25/22] scopolamine base 1 mg over 3 days transdermal patch 1 patch TOPICAL Q72H PRN 02/25/22 [History Confirmed 02/25/22] sumatriptan succinate 100 mg tablet 100 mg PO DIRECTED PRN 02/25/22 [History Confirmed 02/25/22] topiramate 100 mg tablet 100 mg PO BID 02/25/22 [History Confirmed 02/25/22] zolpidem 10 mg tablet 10 mg PO HS 02/25/22 [History Confirmed 02/25/22] Discontinued Medications Acetaminophen (Acetaminophen 500 Mg Tab) 1,000 mg PO NOW STA Stop: 02/25/22 15:22 Last Admin: 02/25/22 15:57 Dose: Not Given Documented by: [id number] Acetaminophen (Acetaminophen 1000 Mg/100 Ml Iv) Confirm Administered Dose 1,000 mg IV .STK-MED ONE Stop: 02/25/22 15:39 Last Admin: 02/25/22 15:43 Dose: 1,000 mg Documented by: [id number] Acetaminophen (Acetaminophen 500 Mg Tab) 1,000 mg PO NOW STA Stop: 02/25/22 15:49 Last Admin: 02/25/22 15:57 Dose: Not Given Documented by: [id number] Acetaminophen (Acetaminophen 1000 Mg/100 Ml Iv) 1,000 mg IV ONCE ONE Stop: 02/25/22 16:06 Last Admin: 02/25/22 15:45 Dose: 1,000 mg Documented by: [id number] Sodium Chloride (Nss) 500 mls @ 999 mls/hr IV .Q31M STA Stop: 02/25/22 10:34 Last Infusion: 02/25/22 12:14 Dose: 0 mls/hr Documented by: [id number] Admin: 02/25/22 11:00 Dose: 999 mls/hr Documented by: [id number] Promethazine HCl 6.25 mg/ (Sodium Chloride) 50.25 mls @ 201 mls/hr IV NOW STA Stop: 02/25/22 12:25 Last Infusion: 02/25/22 13:24 Dose: 0 mls/hr Documented by: [id number] Admin: 02/25/22 12:55 Dose: 201 mls/hr Documented by: [id number] Sodium Chloride (Nss 1000ml) 1,000 mls @ 999 mls/hr IV .Q1H1M ONE Stop: 02/25/22 14:52 Last Infusion: 02/25/22 15:30 Dose: 0 mls/hr Documented by: [id number] Admin: 02/25/22 14:33 Dose: 999 mls/hr Documented by: [id number] Sodium Chloride (Nss 1000ml) 1,000 mls @ 999 mls/hr IV .Q1H1M ONE Stop: 02/25/22 17:21 Last Admin: 02/25/22 17:42 Dose: 999 mls/hr Documented by: [id number] Ceftriaxone Sodium (Rocephin) 2,000 mg in 70 mls @ 140 mls/hr IV NOW STA Stop: 02/25/22 16:50 Last Admin: 02/25/22 17:41 Dose: 140 mls/hr Documented by: [id number] Ioversol (Optiray 320 100ml) 96 ml IV ONCE ONE Stop: 02/25/22 12:45 Last Admin: 02/25/22 12:47 Dose: 96 ml Documented by: [id number] Morphine Sulfate (Morphine Sulfate 4 Mg/Ml 1 Ml Carp\Vial) 4 mg IV NOW STA Stop: 02/25/22 10:05 Last Admin: 02/25/22 11:01 Dose: 4 mg Documented by: [id number] Morphine Sulfate (Morphine Sulfate 4 Mg/Ml 1 Ml Carp\Vial) 4 mg IV NOW STA Stop: 02/25/22 12:12 Last Admin: 02/25/22 12:19 Dose: 4 mg Documented by: [id number] Ondansetron HCl (Ondansetron Inj 2 Mg/Ml 2 Ml Vial) 4 mg IV NOW STA Stop: 02/25/22 10:05 Last Admin: 02/25/22 11:01 Dose: 4 mg Documented by: [id number] Oxycodone/Acetaminophen (Percocet 5/325mg Homepack) 1 homepack PO UD ONE Stop: 02/25/22 14:26 Last Admin: 02/25/22 17:42 Dose: Not Given Documented by: [id number] ECG Additional Comments: Sinus rhythm with 1st degree A-V block Poor R wave progression, consider anterior WI vs. lead placement vs. LVH T-wave inversion in Anteroseptal leads , consider ischemia Abnormal ECG No previous ECGs available Confirmed by Eran Sewell ([id number]) on 02/25/2022 4:20:28 PM Code Status & VTE Plan Code Status CODE: FULL VTE: SCDS, lovenox VTE Prophylaxis Plan VTE Prophylaxis will be ordered: Yes Supervising Physician Co-Signing Physician Notes Patient seen and examined at bedside. Obtained a physical examination and history during face to face encounter. I discussed plan of care with EDWARD Boyd I reviewed above note and agree with it. Patient will be admitted with sepsis. Ordered cultures. Placed on antibiotics. will monitor fever curve PG Care Time/CCT Total # of Minutes Spent Total Time Spent with Patient: Total time spent is greater than 50% in coordination of care (as documented) at patient's floor/unit and/or counseling patient: Coding Level of Care Code 08712 Initial Inpt Care Lvl 3 Diagnoses Sepsis A41.9 H/O gastric bypass Z98.84 HFrEF (heart failure with reduced ejection fraction) I50.20 Complications of gastric bypass surgery K91.89; Y83.2 Migraine G43.909
[2022-02-25] MEDS ORDERED: ACETAMINOPHEN 325 MG TAB PO PRN (18:56)
[2022-02-25] MEDS ORDERED: PROCHLORPERAZINE 5 MG in SYRINGE 4 ML IV ONE (19:05)
[2022-02-25] MEDS ORDERED: SUMAtriptan succinate 100 MG TAB PO STA (19:05)
[2022-02-25] MEDS: ONDANSETRON INJ 2 MG/ML 2 ML VIAL IV PRN (19:55)
[2022-02-25] MEDS: PANTOprazole 40 MG TAB PO SCH (19:56)
[2022-02-25] MEDS: TOPIRAMATE 100 MG TAB PO SCH (21:34)
[2022-02-25] MEDS: ZOLPIDEM TARTRATE 10 MG TAB PO SCH (21:34)
[2022-02-25 21:51] LABS: Iron 19 mcg/dl (35-150); Total Iron Binding Cap Calc 215 mcg/dl (250-450); Transferrin (FE) Percent Satur 9 % (15-50); Unsaturated Iron Binding Cap 196 mcg/dl (155-355)
[2022-02-26] MEDS: MAGNESIUM SULFATE / D5W 1 GM/100 ML BAG IV SCH ×2 (00:34→02:29)
[2022-02-26 00:56] LABS: Appearance Urine Clear (Clear); Bilirubin Urine Negative (Negative); Blood Urine Negative (Negative); Color Urine Yellow; Glucose Urine UA Negative (Negative); Ketones Urine 2+ (Negative); Leukocyte Esterase Urine Negative (Negative); Nitrite Urine Negative (Negative); Protein Urine Negative (Negative); Specific Gravity Urine 1.043 (1.000-1.030); Urobilinogen Urine Positive (Negative)
[2022-02-26] MEDS: ONDANSETRON INJ 2 MG/ML 2 ML VIAL IV PRN ×2 (02:35→11:10)
[2022-02-26] MEDS: oxyCODONE HCL IR 5 MG TAB (IMMEDIATE RELEASE) PO PRN (04:45)
[2022-02-26] MEDS: DICYCLOMINE HCL 20 MG TAB PO PRN (05:03)
[2022-02-26] MEDS: HYDROmorphone INJ 0.5 MG/0.5 ML SYR ONE ×2 (05:54→07:11)
[2022-02-26] MEDS: HYDROmorphone INJ 0.5 MG/0.5 ML SYR IV STA ×2 (05:56→06:00)
[2022-02-26 09:38] LABS: Hematocrit (blood only) 35.1 % (37-47); Hemoglobin 11.4 g/dL (12.0-16.0); Mean Corpuscular Hemoglobin 30.2 pg (25-34); Mean Corpuscular Hgb Conc 32.5 g/dL (32-36); Mean Corpuscular Volume 93.1 fL (80-100); Mean Platelet Volume 11.2 fL (7.4-10.4); Platelet Count 162 K/uL (130-400); RDW Coefficient of Variation 13.3 % (11.5-14.5); RDW Standard Deviation 45.6 fL (36.4-46.3); Red Blood Count 3.77 M/uL (4.2-5.4); White Blood Count 5.55 K/uL (4.8-10.8)
[2022-02-26 09:58] LABS: Basophils # (auto) 0.01 K/uL (0-0.2); Basophils % (auto) 0.2 %; Eosinophils # (auto) 0.04 K/uL (0-0.5); Eosinophils % (auto) 0.7 %; Immature Granulocytes # (auto) 0.02 K/uL (0.00-0.02); Immature Granulocytes % (auto) 0.4 %; Lymphocytes # (auto) 0.94 K/uL (1.2-3.4); Lymphocytes % (auto) 16.9 %; Monocytes % (auto) 14.4 %; Neutrophils # (auto) 3.74 K/uL (1.4-6.5); Neutrophils % (auto) 67.4 %
[2022-02-26] MEDS: ALPRAZolam 0.5 MG TABLET PO SCH (09:58)
[2022-02-26 10:00] LABS: BUN Creatinine Ratio 14.9 (10-20); C Reactive Protein 15.35 mg/dl (0-0.5); Creatinine Clr Calc Pharmacy 117.9 ml/min; Est GFR (African American) 118.8 ml/min; Est GFR (Non-African American) 102.5 ml/min; Magnesium 2.4 mg/dl (1.7-2.4); Potassium 3.4 mmol/L (3.5-5.1)
[2022-02-26 10:17] LABS: Ferritin 517.3 ng/ml (8-388)
[2022-02-26] MEDS ORDERED: diphenhydrAMINE 50 MG/ML VIAL IV STA (10:55)
[2022-02-26] MEDS: NORMOSOL-R 1,000 ML IV SCH ×2 (11:09→21:53)
[2022-02-26] MEDS: PANTOprazole 40 MG TAB PO SCH (11:10)
[2022-02-26] MEDS: TOPIRAMATE 100 MG TAB PO SCH ×2 (11:10→21:41)
[2022-02-26] MEDS: ENOXAPARIN INJ 40 MG/0.4 ML SYR SQ SCH (11:10)
[2022-02-26 11:38] LABS: Folate (Folic Acid) 15.52 ng/ml (>5.38)
[2022-02-26] MEDS ORDERED: ACETAMINOPHEN 1,000 MG/100 ML VIAL IV PRN (15:02)
--- NOTE | 2022-02-26 15:09 | Hospitalist Progress Note ---
Date of Service February 26, 2022 Assessment & Plan (1) Sepsis: Plan: Patient presents with headache, bilateral flank and lower abdominal pain, and fever for past 3 days noted with tachycardia and hypotensive episode in the ER - - lactate negative, PCT elevated at 4, WBC mild leukopenia, febrile, CRP elevated at 15 -COVID-19 negative - HX of recent gastric bypass surgery 11/2021, here with negative CT abdomen/pelvis for any leaks or stranding - Pulmonary with calcified granulomas- without opacities or dyspnea- aspergillus and fungitell sent- previously on TPN for poor nutritional status and difficulty taking p.o. due to esophageal stricture status post recent gastric bypass surgery-stopped TPN approximately 3 weeks prior - PICC line remains in place but appears clean at insertion site- culture drawn from PICC- remove pending BC or persistent fevers. At risk for fungal infection due to previous TPN and indwelling PICC line -Does have headache but has a history of migraines and I feel this is a migraine induced by fever. She has no nuchal rigidity and looks too well to have a bacterial meningitis-no need for spinal tap at this time - Blood cultures x2 sets drawn-no growth to date -UA on admission shows ketones, nitrite, 2+ bilirubin, a lot of epithelial cells as well as WBC cells and 4+ bacteria along with calcium oxalate crystals-urine culture with pinpoint growth - MRSA swab negative - ECHO pending to look for valvular vegetation -Continue Rocephin for now 2 GM- broaden out if needed but currently responding with decrease in temp/HR/BP-fever seems to be resolving now -Check viral respiratory panel/bio fire-negative -Check Lyme titer-negative -Check Anaplasma smear-negative, Anaplasma DNA pending, however does not have elevated LFTs or low platelets so doubt anaplasmosis -Follow CBC, CMP, CRP, ESR, procalcitonin in the morning (2) Migraine: Plan: Patient on Topamax for prophylaxis With severe migraine headache constant for the last 4 days since her febrile illness began Nonfocal neurological exam So far has tried Benadryl, started IV fluids, received IV magnesium, Tylenol, and Zofran with no relief -Avoid NSAIDs due to gastric bypass surgery -Gave trial of Fioricet today which helped significantly -Continue IV fluids -Continue Benadryl as needed, Phenergan as needed -Consider IV steroids only as a last resort as this would also put her at risk for anastomotic ulcers given her recent gastric bypass surgery -Hopefully as fevers resolve, migraine will also resolve, however she reports she had a month long severe migraine headache when she had COVID a year and a half ago -CT head was not done on admission, but as she improved with Fioricet and has a nonfocal neurological exam, I do not feel she needs at this time, but could consider brain imaging and neuro consult if headache not improving (3) H/O gastric bypass: Plan: Surgery was done at [facility] in [place] in 11/2021. She then had a revision with lysis of adhesions due to ongoing abdominal pains She had a month-long stay in [facility] in December for this revision and also had multiple dilations of a stricture near esophagus which was causing significant issues with p.o. intake and nutritional status She ended up on TPN but is now off of that for the last 3 weeks. 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 - repeat ECHO here shows mildly reduced LV function and global hypokinesis of the LV, EF is 40-45% - She has stopped previous disease modifying medications due to hypotension back in the fall and has not followed with cardiology in approximately 6 months Troponin here is negative x2 Follow daily weights, I's and O's (5) Complications of gastric bypass surgery: Plan: As above- required second surgery for lysis of adhesions and revision she reports - Remains with persistent nausea and decrease oral intake but can take soft foods-advance diet -Continue PPI but she prefers it to be IV at this time and I will increase to twice daily -Has chronic ongoing burning sensation in the epigastric region ever since her surgery-not new -Vitamin B1, and B6 levels are pending B12 and folate are normal (6) Iron deficiency anemia: Plan: Transferrin saturation low at 9% Needs IV iron but will not give at this time as she reports it makes her feel badly when she gets it Will need IV iron down the road if she cannot tolerate oral iron very well (7) Obesity: Plan: BMI 32.3-improving and has lost 40 pounds since her gastric bypass surgery 3 months ago (8) Hypokalemia: Plan: Potassium low today at 3.4 Replaced with IV potassium chloride 20 mill equivalents Follow BMP and magnesium in the morning Plan: DVT prophylaxis-Lovenox Disposition-continued stay Admission and Anticipated Discharge Date Admission Date: February 25, 2022 Subjective Patient reports she is having an ongoing severe migraine headache that is bitemporal and frontal as well as posterior and associated with nausea but no vomiting. So far, Benadryl helped just slightly. Tylenol did not help much, and Zofran did not do much for her nausea. She reports the headache has been constant for 4 days straight along with the fevers. She has a long history of migraines and did have a migraine that lasted for 30 days when she had COVID a year and a half ago. She does feel like the fevers are getting better but feels like it might come back again today but has not yet. She has chronic burning sensation in her upper mid abdomen since her surgery and this is unchanged. She denies diarrhea. No skin rashes, no joint pains. Is asking for her diet to be changed from liquids to solids/soft foods. Denies chest pain. No urinary symptoms. Telemetry with normal sinus rhythm, PVCs, rates in the 80s to 110s. Review of Systems Review of Systems: All systems reviewed & are unremarkable except as noted in HPI & below Physical Exam Constitutional: WD/WN, vitals as above Eyes: PERRL, conjunctivae normal, anicteric sclerae ENMT: external ear and nose normal, oropharynx normal Neck: trachea midline, no thyromegaly normal visual inspection; neck nontender and no nuchal rigidity Respiratory: normal respiratory effort, lungs clear to auscultation Cardiovascular: RRR, no murmur, no edema Left upper extremity with PICC line in place without any surrounding erythema or tenderness Chest (Breasts): Chest: normal inspection of chest Gastrointestinal (Abdomen): normal bowel sounds, soft, nontender, no hepatosplenomegaly Musculoskeletal: Extremities: extremities normal to inspection; no cyanosis and no clubbing Skin: no rashes, warm and dry Neurologic: moves all extremities and awake; no focal motor deficits Psychiatric: A+Ox3, euthymic affect Lymphatic: no lymphedema Results & Data Results & Data ([facility]) Vital Signs (Past 12 Hours) Vital Signs Temp Pulse Pulse Pulse Resp BP Pulse Ox 02/26/22 15:03 36.7 C 80 20 125/81 96 02/26/22 11:22 36.6 C 73 18 121/81 98 02/26/22 07:00 93 H 02/26/22 06:42 36.9 C 92 H 18 114/76 94 Laboratory Results 02/26/22 02/26/22 02/26/22 Range/Units 15:13 15:06 14:46 WBC (4.8-10.8) K/uL RBC (4.2-5.4) M/uL Hgb (12.0-16.0) g/dL Hct (37-47) % MCV (80-100) fL MCH (25-34) pg MCHC (32-36) g/dL RDW Std Deviation (36.4-46.3) fL RDW Coeff of Candido (11.5-14.5) % Plt Count (130-400) K/uL MPV (7.4-10.4) fL Immature Gran % (Auto) % Neut % (Auto) % Lymph % (Auto) % Kleberg % (Auto) % Eos % (Auto) % Baso % (Auto) % Neut # (Auto) (1.4-6.5) K/uL Lymph # (Auto) (1.2-3.4) K/uL Kleberg # (Auto) (0.11-0.59) K/uL Eos # (Auto) (0-0.5) K/uL Baso # (Auto) (0-0.2) K/uL Immature Gran # (Auto) (0.00-0.02) K/uL ESR (0-30) mm/hr Sodium (136-145) mmol/L Potassium (3.5-5.1) mmol/L Chloride (98-107) mmol/L Carbon Dioxide (21-32) mmol/L Anion Gap (3-11) BUN (6-23) mg/dl Creatinine (0.6-1.2) mg/dl Est Cr Clr Drug Dosing ml/min Est GFR ( Amer) ml/min Est GFR (Non-Af Amer) ml/min BUN/Creatinine Ratio (10-20) Glucose (70-99(Fasting)) mg/dl Calcium (8.5-10.1) mg/dl Magnesium (1.7-2.4) mg/dl Iron (35-150) mcg/dl TIBC (250-450) mcg/dl Unsaturated IBC (155-355) mcg/dl Transferrin % Sat (15-50) % Ferritin (8-388) ng/ml Troponin I High Sens (0-14) pg/ml C-Reactive Protein (0-0.5) mg/dl Vitamin B1 Whole Bld Vitamin B1 Vitamin B6 Vitamin B12 (180-914) pg/ml Folate (>5.38) ng/ml Procalcitonin (0-0.5) ng/ml Urine Color Urine Appearance (Clear) Urine pH (4.5-7.5) Ur Specific [place] (1.000-1.030) Urine Protein (Negative) Urine Glucose (UA) (Negative) Urine Ketones (Negative) Urine Blood (Negative) Urine Nitrite (Negative) Urine Bilirubin (Negative) Urine Urobilinogen (Negative) Ur Leukocyte Esterase (Negative) Nasal Screen MRSA (PCR) (Negative) Adenovirus (PCR) Not Detected (NotDetected) Anaplasma Smear See Comment A. phagocytophilum DNA B. pertussis DNA (PCR) Not Detected (NotDetected) B.parapertussis DNA PCR Not Detected (NotDetected) Lyme Disease IgG Ab Negative (Negative) Lyme Disease IgM Ab Negative (Negative) C. pneumoniae DNA (PCR) Not Detected (NotDetected) Coronavirus OC43 (PCR) Not Detected (NotDetected) Coronavirus HKU1 (PCR) Not Detected (NotDetected) Coronavirus 229E (PCR) Not Detected (NotDetected) SARS-CoV-2 (PCR) Not Detected (NotDetected) Coronavirus NL63 (PCR) Not Detected (NotDetected) Human Metapneumovir PCR Not Detected (NotDetected) Influenza Type A (PCR) Not Detected (NotDetected) Influenza Type B (PCR) Not Detected (NotDetected) M. pneumoniae (PCR) Not Detected (NotDetected) Parainfluenza 1 (PCR) Not Detected (NotDetected) Parainfluenza 2 (PCR) Not Detected (NotDetected) Parainfluenza 3 (PCR) Not Detected (NotDetected) Parainfluenza 4 (PCR) Not Detected (NotDetected) A. galactomannan Ag A. galactomannan Ag Idx RSV (PCR) Not Detected (NotDetected) Entero/Rhino (PCR) Not Detected (NotDetected) Beta-(1,3)-D-Glucan B-(1,3)-D-Glucan Intrp 02/26/22 02/26/22 02/26/22 Range/Units 10:15 10:04 08:34 WBC (4.8-10.8) K/uL RBC (4.2-5.4) M/uL Hgb (12.0-16.0) g/dL Hct (37-47) % MCV (80-100) fL MCH (25-34) pg MCHC (32-36) g/dL RDW Std Deviation (36.4-46.3) fL RDW Coeff of Candido (11.5-14.5) % Plt Count (130-400) K/uL MPV (7.4-10.4) fL Immature Gran % (Auto) % Neut % (Auto) % Lymph % (Auto) % Kleberg % (Auto) % Eos % (Auto) % Baso % (Auto) % Neut # (Auto) (1.4-6.5) K/uL Lymph # (Auto) (1.2-3.4) K/uL Kleberg # (Auto) (0.11-0.59) K/uL Eos # (Auto) (0-0.5) K/uL Baso # (Auto) (0-0.2) K/uL Immature Gran # (Auto) (0.00-0.02) K/uL ESR (0-30) mm/hr Sodium (136-145) mmol/L Potassium (3.5-5.1) mmol/L Chloride (98-107) mmol/L Carbon Dioxide (21-32) mmol/L Anion Gap (3-11) BUN (6-23) mg/dl Creatinine (0.6-1.2) mg/dl Est Cr Clr Drug Dosing ml/min Est GFR ( Amer) ml/min Est GFR (Non-Af Amer) ml/min BUN/Creatinine Ratio (10-20) Glucose (70-99(Fasting)) mg/dl Calcium (8.5-10.1) mg/dl Magnesium (1.7-2.4) mg/dl Iron (35-150) mcg/dl TIBC (250-450) mcg/dl Unsaturated IBC (155-355) mcg/dl Transferrin % Sat (15-50) % Ferritin (8-388) ng/ml Troponin I High Sens 4.7 (0-14) pg/ml C-Reactive Protein (0-0.5) mg/dl Vitamin B1 Whole Bld Vitamin B1 Vitamin B6 Vitamin B12 (180-914) pg/ml Folate (>5.38) ng/ml Procalcitonin (0-0.5) ng/ml Urine Color Urine Appearance (Clear) Urine pH (4.5-7.5) Ur Specific [place] (1.000-1.030) Urine Protein (Negative) Urine Glucose (UA) (Negative) Urine Ketones (Negative) Urine Blood (Negative) Urine Nitrite (Negative) Urine Bilirubin (Negative) Urine Urobilinogen (Negative) Ur Leukocyte Esterase (Negative) Nasal Screen MRSA (PCR) (Negative) Adenovirus (PCR) (NotDetected) Anaplasma Smear A. phagocytophilum DNA Pending B. pertussis DNA (PCR) (NotDetected) B.parapertussis DNA PCR (NotDetected) Lyme Disease IgG Ab (Negative) Lyme Disease IgM Ab (Negative) C. pneumoniae DNA (PCR) (NotDetected) Coronavirus OC43 (PCR) (NotDetected) Coronavirus HKU1 (PCR) (NotDetected) Coronavirus 229E (PCR) (NotDetected) SARS-CoV-2 (PCR) (NotDetected) Coronavirus NL63 (PCR) (NotDetected) Human Metapneumovir PCR (NotDetected) Influenza Type A (PCR) (NotDetected) Influenza Type B (PCR) (NotDetected) M. pneumoniae (PCR) (NotDetected) Parainfluenza 1 (PCR) (NotDetected) Parainfluenza 2 (PCR) (NotDetected) Parainfluenza 3 (PCR) (NotDetected) Parainfluenza 4 (PCR) (NotDetected) A. galactomannan Ag Pending A. galactomannan Ag Idx Pending RSV (PCR) (NotDetected) Entero/Rhino (PCR) (NotDetected) Beta-(1,3)-D-Glucan B-(1,3)-D-Glucan Intrp 02/26/22 02/26/22 02/26/22 Range/Units 08:34 08:34 08:34 WBC (4.8-10.8) K/uL RBC (4.2-5.4) M/uL Hgb (12.0-16.0) g/dL Hct (37-47) % MCV (80-100) fL MCH (25-34) pg MCHC (32-36) g/dL RDW Std Deviation (36.4-46.3) fL RDW Coeff of Candido (11.5-14.5) % Plt Count (130-400) K/uL MPV (7.4-10.4) fL Immature Gran % (Auto) % Neut % (Auto) % Lymph % (Auto) % Kleberg % (Auto) % Eos % (Auto) % Baso % (Auto) % Neut # (Auto) (1.4-6.5) K/uL Lymph # (Auto) (1.2-3.4) K/uL Kleberg # (Auto) (0.11-0.59) K/uL Eos # (Auto) (0-0.5) K/uL Baso # (Auto) (0-0.2) K/uL Immature Gran # (Auto) (0.00-0.02) K/uL ESR (0-30) mm/hr Sodium (136-145) mmol/L Potassium (3.5-5.1) mmol/L Chloride (98-107) mmol/L Carbon Dioxide (21-32) mmol/L Anion Gap (3-11) BUN (6-23) mg/dl Creatinine (0.6-1.2) mg/dl Est Cr Clr Drug Dosing ml/min Est GFR ( Amer) ml/min Est GFR (Non-Af Amer) ml/min BUN/Creatinine Ratio (10-20) Glucose (70-99(Fasting)) mg/dl Calcium (8.5-10.1) mg/dl Magnesium (1.7-2.4) mg/dl Iron (35-150) mcg/dl TIBC (250-450) mcg/dl Unsaturated IBC (155-355) mcg/dl Transferrin % Sat (15-50) % Ferritin (8-388) ng/ml Troponin I High Sens (0-14) pg/ml C-Reactive Protein (0-0.5) mg/dl Vitamin B1 Whole Bld Vitamin B1 Vitamin B6 Vitamin B12 619 (180-914) pg/ml Folate 15.52 (>5.38) ng/ml Procalcitonin 4.37 H (0-0.5) ng/ml Urine Color Urine Appearance (Clear) Urine pH (4.5-7.5) Ur Specific [place] (1.000-1.030) Urine Protein (Negative) Urine Glucose (UA) (Negative) Urine Ketones (Negative) Urine Blood (Negative) Urine Nitrite (Negative) Urine Bilirubin (Negative) Urine Urobilinogen (Negative) Ur Leukocyte Esterase (Negative) Nasal Screen MRSA (PCR) (Negative) Adenovirus (PCR) (NotDetected) Anaplasma Smear A. phagocytophilum DNA B. pertussis DNA (PCR) (NotDetected) B.parapertussis DNA PCR (NotDetected) Lyme Disease IgG Ab (Negative) Lyme Disease IgM Ab (Negative) C. pneumoniae DNA (PCR) (NotDetected) Coronavirus OC43 (PCR) (NotDetected) Coronavirus HKU1 (PCR) (NotDetected) Coronavirus 229E (PCR) (NotDetected) SARS-CoV-2 (PCR) (NotDetected) Coronavirus NL63 (PCR) (NotDetected) Human Metapneumovir PCR (NotDetected) Influenza Type A (PCR) (NotDetected) Influenza Type B (PCR) (NotDetected) M. pneumoniae (PCR) (NotDetected) Parainfluenza 1 (PCR) (NotDetected) Parainfluenza 2 (PCR) (NotDetected) Parainfluenza 3 (PCR) (NotDetected) Parainfluenza 4 (PCR) (NotDetected) A. galactomannan Ag A. galactomannan Ag Idx RSV (PCR) (NotDetected) Entero/Rhino (PCR) (NotDetected) Beta-(1,3)-D-Glucan Pending B-(1,3)-D-Glucan Intrp Pending 02/26/22 02/26/22 02/26/22 Range/Units 08:34 08:34 08:34 WBC 5.55 (4.8-10.8) K/uL RBC 3.77 L (4.2-5.4) M/uL Hgb 11.4 L (12.0-16.0) g/dL Hct 35.1 L (37-47) % MCV 93.1 (80-100) fL MCH 30.2 (25-34) pg MCHC 32.5 (32-36) g/dL RDW Std Deviation 45.6 (36.4-46.3) fL RDW Coeff of Candido 13.3 (11.5-14.5) % Plt Count 162 (130-400) K/uL MPV 11.2 H (7.4-10.4) fL Immature Gran % (Auto) 0.4 % Neut % (Auto) 67.4 % Lymph % (Auto) 16.9 % Kleberg % (Auto) 14.4 % Eos % (Auto) 0.7 % Baso % (Auto) 0.2 % Neut # (Auto) 3.74 (1.4-6.5) K/uL Lymph # (Auto) 0.94 L (1.2-3.4) K/uL Kleberg # (Auto) 0.80 H (0.11-0.59) K/uL Eos # (Auto) 0.04 (0-0.5) K/uL Baso # (Auto) 0.01 (0-0.2) K/uL Immature Gran # (Auto) 0.02 (0.00-0.02) K/uL ESR 33 H (0-30) mm/hr Sodium 136 (136-145) mmol/L Potassium 3.4 L (3.5-5.1) mmol/L Chloride 107 (98-107) mmol/L Carbon Dioxide 23 (21-32) mmol/L Anion Gap 6 (3-11) BUN 10 (6-23) mg/dl Creatinine 0.67 (0.6-1.2) mg/dl Est Cr Clr Drug Dosing 117.9 ml/min Est GFR ( Amer) 118.8 ml/min Est GFR (Non-Af Amer) 102.5 ml/min BUN/Creatinine Ratio 14.9 (10-20) Glucose 94 (70-99(Fasting)) mg/dl Calcium 8.0 L (8.5-10.1) mg/dl Magnesium 2.4 (1.7-2.4) mg/dl Iron (35-150) mcg/dl TIBC (250-450) mcg/dl Unsaturated IBC (155-355) mcg/dl Transferrin % Sat (15-50) % Ferritin 517.3 H (8-388) ng/ml Troponin I High Sens (0-14) pg/ml C-Reactive Protein 15.35 H (0-0.5) mg/dl Vitamin B1 Whole Bld Vitamin B1 Vitamin B6 Vitamin B12 (180-914) pg/ml Folate (>5.38) ng/ml Procalcitonin (0-0.5) ng/ml Urine Color Urine Appearance (Clear) Urine pH (4.5-7.5) Ur Specific [place] (1.000-1.030) Urine Protein (Negative) Urine Glucose (UA) (Negative) Urine Ketones (Negative) Urine Blood (Negative) Urine Nitrite (Negative) Urine Bilirubin (Negative) Urine Urobilinogen (Negative) Ur Leukocyte Esterase (Negative) Nasal Screen MRSA (PCR) (Negative) Adenovirus (PCR) (NotDetected) Anaplasma Smear A. phagocytophilum DNA B. pertussis DNA (PCR) (NotDetected) B.parapertussis DNA PCR (NotDetected) Lyme Disease IgG Ab (Negative) Lyme Disease IgM Ab (Negative) C. pneumoniae DNA (PCR) (NotDetected) Coronavirus OC43 (PCR) (NotDetected) Coronavirus HKU1 (PCR) (NotDetected) Coronavirus 229E (PCR) (NotDetected) SARS-CoV-2 (PCR) (NotDetected) Coronavirus NL63 (PCR) (NotDetected) Human Metapneumovir PCR (NotDetected) Influenza Type A (PCR) (NotDetected) Influenza Type B (PCR) (NotDetected) M. pneumoniae (PCR) (NotDetected) Parainfluenza 1 (PCR) (NotDetected) Parainfluenza 2 (PCR) (NotDetected) Parainfluenza 3 (PCR) (NotDetected) Parainfluenza 4 (PCR) (NotDetected) A. galactomannan Ag A. galactomannan Ag Idx RSV (PCR) (NotDetected) Entero/Rhino (PCR) (NotDetected) Beta-(1,3)-D-Glucan B-(1,3)-D-Glucan Intrp 02/26/22 02/25/22 02/25/22 Range/Units 08:34 23:53 22:40 WBC (4.8-10.8) K/uL RBC (4.2-5.4) M/uL Hgb (12.0-16.0) g/dL Hct (37-47) % MCV (80-100) fL MCH (25-34) pg MCHC (32-36) g/dL RDW Std Deviation (36.4-46.3) fL RDW Coeff of Candido (11.5-14.5) % Plt Count (130-400) K/uL MPV (7.4-10.4) fL Immature Gran % (Auto) % Neut % (Auto) % Lymph % (Auto) % Kleberg % (Auto) % Eos % (Auto) % Baso % (Auto) % Neut # (Auto) (1.4-6.5) K/uL Lymph # (Auto) (1.2-3.4) K/uL Kleberg # (Auto) (0.11-0.59) K/uL Eos # (Auto) (0-0.5) K/uL Baso # (Auto) (0-0.2) K/uL Immature Gran # (Auto) (0.00-0.02) K/uL ESR (0-30) mm/hr Sodium (136-145) mmol/L Potassium (3.5-5.1) mmol/L Chloride (98-107) mmol/L Carbon Dioxide (21-32) mmol/L Anion Gap (3-11) BUN (6-23) mg/dl Creatinine (0.6-1.2) mg/dl Est Cr Clr Drug Dosing ml/min Est GFR ( Amer) ml/min Est GFR (Non-Af Amer) ml/min BUN/Creatinine Ratio (10-20) Glucose (70-99(Fasting)) mg/dl Calcium (8.5-10.1) mg/dl Magnesium (1.7-2.4) mg/dl Iron (35-150) mcg/dl TIBC (250-450) mcg/dl Unsaturated IBC (155-355) mcg/dl Transferrin % Sat (15-50) % Ferritin (8-388) ng/ml Troponin I High Sens (0-14) pg/ml C-Reactive Protein (0-0.5) mg/dl Vitamin B1 Pending Whole Bld Vitamin B1 Cancelled Vitamin B6 Pending Vitamin B12 (180-914) pg/ml Folate (>5.38) ng/ml Procalcitonin (0-0.5) ng/ml Urine Color Yellow Urine Appearance Clear (Clear) Urine pH 7.0 (4.5-7.5) Ur Specific [place] 1.043 H (1.000-1.030) Urine Protein Negative (Negative) Urine Glucose (UA) Negative (Negative) Urine Ketones 2+ H (Negative) Urine Blood Negative (Negative) Urine Nitrite Negative (Negative) Urine Bilirubin Negative (Negative) Urine Urobilinogen Positive H (Negative) Ur Leukocyte Esterase Negative (Negative) Nasal Screen MRSA (PCR) Negative (Negative) Adenovirus (PCR) (NotDetected) Anaplasma Smear A. phagocytophilum DNA B. pertussis DNA (PCR) (NotDetected) B.parapertussis DNA PCR (NotDetected) Lyme Disease IgG Ab (Negative) Lyme Disease IgM Ab (Negative) C. pneumoniae DNA (PCR) (NotDetected) Coronavirus OC43 (PCR) (NotDetected) Coronavirus HKU1 (PCR) (NotDetected) Coronavirus 229E (PCR) (NotDetected) SARS-CoV-2 (PCR) (NotDetected) Coronavirus NL63 (PCR) (NotDetected) Human Metapneumovir PCR (NotDetected) Influenza Type A (PCR) (NotDetected) Influenza Type B (PCR) (NotDetected) M. pneumoniae (PCR) (NotDetected) Parainfluenza 1 (PCR) (NotDetected) Parainfluenza 2 (PCR) (NotDetected) Parainfluenza 3 (PCR) (NotDetected) Parainfluenza 4 (PCR) (NotDetected) A. galactomannan Ag Cancelled A. galactomannan Ag Idx Cancelled RSV (PCR) (NotDetected) Entero/Rhino (PCR) (NotDetected) Beta-(1,3)-D-Glucan Cancelled B-(1,3)-D-Glucan Intrp Cancelled 02/25/22 02/25/22 Range/Units 17:10 17:10 WBC (4.8-10.8) K/uL RBC (4.2-5.4) M/uL Hgb (12.0-16.0) g/dL Hct (37-47) % MCV (80-100) fL MCH (25-34) pg MCHC (32-36) g/dL RDW Std Deviation (36.4-46.3) fL RDW Coeff of Candido (11.5-14.5) % Plt Count (130-400) K/uL MPV (7.4-10.4) fL Immature Gran % (Auto) % Neut % (Auto) % Lymph % (Auto) % [place] % (Auto) % Eos % (Auto) % Baso % (Auto) % Neut # (Auto) (1.4-6.5) K/uL Lymph # (Auto) (1.2-3.4) K/uL Kle[place] # (Auto) (0.11-0.59) K/uL Eos # (Auto) (0-0.5) K/uL Baso # (Auto) (0-0.2) K/uL Immature Gran # (Auto) (0.00-0.02) K/uL ESR (0-30) mm/hr Sodium (136-145) mmol/L Potassium (3.5-5.1) mmol/L Chloride (98-107) mmol/L Carbon Dioxide (21-32) mmol/L Anion Gap (3-11) BUN (6-23) mg/dl Creatinine (0.6-1.2) mg/dl Est Cr Clr Drug Dosing ml/min Est GFR ( Amer) ml/min Est GFR (Non-Af Amer) ml/min BUN/Creatinine Ratio (10-20) Glucose (70-99(Fasting)) mg/dl Calcium (8.5-10.1) mg/dl Magnesium 1.7 (1.7-2.4) mg/dl Iron 19 L (35-150) mcg/dl TIBC 215 L (250-450) mcg/dl Unsaturated IBC 196 (155-355) mcg/dl Transferrin % Sat 9 L (15-50) % Ferritin (8-388) ng/ml Troponin I High Sens (0-14) pg/ml C-Reactive Protein (0-0.5) mg/dl Vitamin B1 Whole Bld Vitamin B1 Vitamin B6 Vitamin B12 (180-914) pg/ml Folate (>5.38) ng/ml Procalcitonin (0-0.5) ng/ml Urine Color Urine Appearance (Clear) Urine pH (4.5-7.5) Ur Specific [place] (1.000-1.030) Urine Protein (Negative) Urine Glucose (UA) (Negative) Urine Ketones (Negative) Urine Blood (Negative) Urine Nitrite (Negative) Urine Bilirubin (Negative) Urine Urobilinogen (Negative) Ur Leukocyte Esterase (Negative) Nasal Screen MRSA (PCR) (Negative) Adenovirus (PCR) (NotDetected) Anaplasma Smear A. phagocytophilum DNA B. pertussis DNA (PCR) (NotDetected) B.parapertussis DNA PCR (NotDetected) Lyme Disease IgG Ab (Negative) Lyme Disease IgM Ab (Negative) C. pneumoniae DNA (PCR) (NotDetected) Coronavirus OC43 (PCR) (NotDetected) Coronavirus HKU1 (PCR) (NotDetected) Coronavirus 229E (PCR) (NotDetected) SARS-CoV-2 (PCR) (NotDetected) Coronavirus NL63 (PCR) (NotDetected) Human Metapneumovir PCR (NotDetected) Influenza Type A (PCR) (NotDetected) Influenza Type B (PCR) (NotDetected) M. pneumoniae (PCR) (NotDetected) Parainfluenza 1 (PCR) (NotDetected) Parainfluenza 2 (PCR) (NotDetected) Parainfluenza 3 (PCR) (NotDetected) Parainfluenza 4 (PCR) (NotDetected) A. galactomannan Ag A. 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
[2022-02-26] MEDS: BUTALBITAL/ACETAMIN/CAFFEINE TAB PO PRN ×2 (16:23→21:41)
[2022-02-26] MEDS: PROMETHAZINE HCL 12.5 MG in SODIUM CHLORIDE 0.9% 50 ML IV PRN (16:23)
[2022-02-26 16:33] LABS: Lyme Ab IgG w/WB Rflx Negative (Negative); Lyme Ab IgM w/WB Rflx Negative (Negative)
[2022-02-26 16:43] LABS: Adenovirus PCR Not Detected (NotDetected); Bordetella parapertussis PCR Not Detected (NotDetected); Bordetella pertussis PCR Not Detected (NotDetected); Chlamydia pneumoniae PCR Not Detected (NotDetected); Coronavirus 229E PCR Not Detected (NotDetected); Coronavirus CoV-2 (COVID19)PCR Not Detected (NotDetected); Coronavirus HKU1 PCR Not Detected (NotDetected); Coronavirus NL63 PCR Not Detected (NotDetected); Coronavirus OC43PCR Not Detected (NotDetected); Human Metapneumovirus PCR Not Detected (NotDetected); Influenza A PCR Not Detected (NotDetected); Influenza B PCR Not Detected (NotDetected); Mycoplasma pneumoniae PCR Not Detected (NotDetected); Parainfluenza Virus 1 PCR Not Detected (NotDetected); Parainfluenza Virus 2 PCR Not Detected (NotDetected); Parainfluenza Virus 3 PCR Not Detected (NotDetected); Parainfluenza Virus 4 PCR Not Detected (NotDetected); Respiratory Syncytial VirusPCR Not Detected (NotDetected); Rhinovirus/Enterovirus PCR Not Detected (NotDetected)
[2022-02-26] MEDS: cefTRIAXone SODIUM 2,000 MG in DEXTROSE 5% 50 ML IV SCH (16:49)
--- NOTE | 2022-02-26 17:13 | XCELERA ---
[id number]_[id number]}___[id number].pdf
[2022-02-26] MEDS ORDERED: POTASSIUM CHLORIDE / WTR 20 MEQ/100 ML PLCT IV ONE (21:30)
[2022-02-26] MEDS: ZOLPIDEM TARTRATE 10 MG TAB PO SCH (21:42)
[2022-02-26] MEDS: PANTOprazole 40 MG in SYRINGE 0 ML IV SCH (21:43)
[2022-02-27] MEDS: ONDANSETRON INJ 2 MG/ML 2 ML VIAL IV PRN (03:09)
[2022-02-27] MEDS: DICYCLOMINE HCL 20 MG TAB PO PRN ×2 (03:09→08:17)
[2022-02-27] MEDS: oxyCODONE HCL IR 5 MG TAB (IMMEDIATE RELEASE) PO PRN ×3 (07:31→23:32)
[2022-02-27 07:46] LABS: Basophils # (auto) 0.01 K/uL (0-0.2); Basophils % (auto) 0.2 %; Eosinophils # (auto) 0.14 K/uL (0-0.5); Eosinophils % (auto) 2.9 %; Hematocrit (blood only) 35.6 % (37-47); Hemoglobin 11.4 g/dL (12.0-16.0); Immature Granulocytes # (auto) 0.01 K/uL (0.00-0.02); Immature Granulocytes % (auto) 0.2 %; Lymphocytes # (auto) 1.65 K/uL (1.2-3.4); Lymphocytes % (auto) 34.7 %; Mean Corpuscular Hemoglobin 29.7 pg (25-34); Mean Corpuscular Volume 92.7 fL (80-100); Mean Platelet Volume 10.7 fL (7.4-10.4); Monocytes # (auto) 0.56 K/uL (0.11-0.59); Monocytes % (auto) 11.8 %; Neutrophils # (auto) 2.38 K/uL (1.4-6.5); Neutrophils % (auto) 50.2 %; Platelet Count 178 K/uL (130-400); RDW Coefficient of Variation 13.3 % (11.5-14.5); RDW Standard Deviation 45.5 fL (36.4-46.3); Red Blood Count 3.84 M/uL (4.2-5.4); White Blood Count 4.75 K/uL (4.8-10.8)
[2022-02-27] MEDS: ALPRAZolam 0.5 MG TABLET PO SCH (08:16)
[2022-02-27] MEDS: PROMETHAZINE HCL 12.5 MG in SODIUM CHLORIDE 0.9% 50 ML IV PRN ×2 (08:16→17:02)
[2022-02-27] MEDS: TOPIRAMATE 100 MG TAB PO SCH ×2 (08:17→21:20)
[2022-02-27] MEDS: ENOXAPARIN INJ 40 MG/0.4 ML SYR SQ SCH (08:17)
[2022-02-27] MEDS: PANTOprazole 40 MG in SYRINGE 0 ML IV SCH ×2 (08:18→21:20)
[2022-02-27] MEDS: NORMOSOL-R 1,000 ML IV SCH ×2 (09:11→21:20)
[2022-02-27 10:23] LABS: Albumin Level 3.5 gm/dl (3.4-5.0); Bilirubin Direct 0.1 mg/dl (0-0.2); Bilirubin,Total 0.4 mg/dl (0.2-1.0); Calcium 8.4 mg/dl (8.5-10.1); Magnesium 2.4 mg/dl (1.7-2.4); Potassium 3.8 mmol/L (3.5-5.1)
[2022-02-27 10:29] LABS: BUN Creatinine Ratio 14.1 (10-20); C Reactive Protein 12.28 mg/dl (0-0.5); Creatinine Clr Calc Pharmacy 111.3 ml/min; Est GFR (African American) 115.1 ml/min; Est GFR (Non-African American) 99.3 ml/min; Total Protein 6.4 gm/dl (6.0-8.3)
--- NOTE | 2022-02-27 14:29 | Electrocardiogram Report ---
Test Reason : Blood Pressure : / mmHG Vent. Rate : 087 BPM Atrial Rate : 087 BPM P-R Int : 202 ms QRS Dur : 090 ms QT Int : 376 ms P-R-T Axes : 012 -21 -08 degrees QTc Int : 452 ms Poor data quality, interpretation may be adversely affected Normal sinus rhythm Anterior infarct (cited on or before 25-FEB-2022) Abnormal ECG When compared with ECG of 25-FEB-2022 11:14, No significant change was found Confirmed by Sudeep Sprague ([id number]) on 02/27/2022 2:29:47 PM Referred By: REFERRED SELF Confirmed By:Sudeep Sprague
--- NOTE | 2022-02-27 16:42 | Hospitalist Progress Note ---
Date of Service February 27, 2022 Assessment & Plan (1) Sepsis: Plan: Patient presents with headache, bilateral flank and lower abdominal pain, and fever for past 3 days noted with tachycardia and hypotensive episode in the ER - - lactate negative, PCT elevated at 4, WBC mild leukopenia, febrile, CRP elevated at 15 -COVID-19 negative - HX of recent gastric bypass surgery 11/2021, here with negative CT abdomen/pelvis for any leaks or stranding - Pulmonary with calcified granulomas- without opacities or dyspnea- aspergillus and fungitell sent- previously on TPN for poor nutritional status and difficulty taking p.o. due to esophageal stricture status post recent gastric bypass surgery-stopped TPN approximately 3 weeks prior - PICC line remains in place but appears clean at insertion site- culture drawn from PICC- remove pending BC or persistent fevers. At risk for fungal infection due to previous TPN and indwelling PICC line -Does have headache but has a history of migraines and I feel this is a migraine induced by fever. She has no nuchal rigidity and looks too well to have a bacterial meningitis-no need for spinal tap at this time - Blood cultures x2 sets drawn-no growth to date -UA on admission shows ketones, nitrite, 2+ bilirubin, a lot of epithelial cells as well as WBC cells and 4+ bacteria along with calcium oxalate crystals-urine culture with pinpoint growth - MRSA swab negative - ECHO pending to look for valvular vegetation -Continue Rocephin for now 2 GM- broaden out if needed but currently responding with decrease in temp/HR/BP-fever seems to be resolving now -Check viral respiratory panel/bio fire-negative -Check Lyme titer-negative -Check Anaplasma smear-negative, Anaplasma DNA pending, however does not have elevated LFTs or low platelets so doubt anaplasmosis -Follow CBC, CMP, CRP, ESR, procalcitonin in the morning: these labs have been improving. -Patient remains afebrile. -will transition to cefdinir and discharge after 24 hours. (2) Migraine: Plan: Patient on Topamax for prophylaxis With severe migraine headache constant for the last 4 days since her febrile illness began Nonfocal neurological exam So far has tried Benadryl, started IV fluids, received IV magnesium, Tylenol, and Zofran with no relief -Avoid NSAIDs due to gastric bypass surgery -Gave trial of Fioricet today which helped significantly -Continue IV fluids -Continue Benadryl as needed, Phenergan as needed -Consider IV steroids only as a last resort as this would also put her at risk for anastomotic ulcers given her recent gastric bypass surgery -Hopefully as fevers resolve, migraine will also resolve, however she reports she had a month long severe migraine headache when she had COVID a year and a half ago -CT head was not done on admission, but as she improved with Fioricet and has a nonfocal neurological exam, I do not feel she needs at this time, but could consider brain imaging and neuro consult if headache not improving (3) H/O gastric bypass: Plan: Surgery was done at [facility] in [place] in 11/2021. She then had a revision with lysis of adhesions due to ongoing abdominal pains She had a month-long stay in [facility] in December for this revision and also had multiple dilations of a stricture near esophagus which was causing significant issues with p.o. intake and nutritional status She ended up on TPN but is now off of that for the last 3 weeks. 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 - repeat ECHO here shows mildly reduced LV function and global hypokinesis of the LV, EF is 40-45% - She has stopped previous disease modifying medications due to hypotension back in the fall and has not followed with cardiology in approximately 6 months Troponin here is negative x2 Follow daily weights, I's and O's (5) Complications of gastric bypass surgery: Plan: As above- required second surgery for lysis of adhesions and revision she reports - Remains with persistent nausea and decrease oral intake but can take soft foods-advance diet -Continue PPI but she prefers it to be IV at this time and I will increase to twice daily -Has chronic ongoing burning sensation in the epigastric region ever since her surgery-not new -Vitamin B1, and B6 levels are pending B12 and folate are normal (6) Iron deficiency anemia: Plan: Transferrin saturation low at 9% Needs IV iron but will not give at this time as she reports it makes her feel badly when she gets it Will need IV iron down the road if she cannot tolerate oral iron very well (7) Obesity: Plan: BMI 32.3-improving and has lost 40 pounds since her gastric bypass surgery 3 months ago (8) Hypokalemia: Plan: Potassium low today at 3.4 Replaced with IV potassium chloride 20 mill equivalents Follow BMP and magnesium in the morning Plan: DVT prophylaxis-Lovenox Disposition-continued stay Admission and Anticipated Discharge Date Admission Date: February 25, 2022 Subjective Patient reports her headaches have improved. She has reported some pain in her abdomen, but it is responding to narcotics. Patiwnt reports she will have GI scope by [facility] gastro later this week. Review of Systems Review of Systems: All systems reviewed & are unremarkable except as noted in HPI & below Physical Exam Constitutional: WD/WN, vitals as above Eyes: PERRL, conjunctivae normal, anicteric sclerae ENMT: external ear and nose normal, oropharynx normal Neck: trachea midline, no thyromegaly normal visual inspection; neck nontender and no nuchal rigidity Respiratory: normal respiratory effort, lungs clear to auscultation Cardiovascular: RRR, no murmur, no edema Chest (Breasts): Chest: normal inspection of chest Gastrointestinal (Abdomen): normal bowel sounds, soft, nontender, no hepatosplenomegaly Musculoskeletal: Extremities: extremities normal to inspection; no cyanosis and no clubbing Skin: no rashes, warm and dry Neurologic: moves all extremities and awake; no focal motor deficits Psychiatric: A+Ox3, euthymic affect Lymphatic: no lymphedema Results & Data Results & Data ([facility]) Vital Signs (Past 12 Hours) Vital Signs Temp Pulse Pulse Resp BP Pulse Ox 02/27/22 15:33 36.7 C 73 20 114/73 97 02/27/22 11:45 36.4 C L 82 18 106/71 97 02/27/22 08:23 36.3 C L 66 18 121/79 99 02/27/22 07:41 70 PG Care Time/CCT Total # of Minutes Spent Total Time Spent with Patient: Total time spent is greater than 50% in coordination of care (as documented) at patient's floor/unit and/or counseling patient: Coding Level of Care Code 85641 Subseq Hosp Care Lvl 3 Diagnoses Sepsis A41.9 Migraine G43.909 H/O gastric bypass Z98.84 HFrEF (heart failure with reduced ejection fraction) I50.20 Complications of gastric bypass surgery K91.89; Y83.2 Iron deficiency anemia D50.9 Obesity E66.9 Hypokalemia E87.6 Time Spent (min) 35
[2022-02-27] MEDS: cefTRIAXone SODIUM 2,000 MG in DEXTROSE 5% 50 ML IV SCH (17:07)
[2022-02-27] MEDS: ZOLPIDEM TARTRATE 10 MG TAB PO SCH (21:22)
[2022-02-28] MEDS: PROMETHAZINE HCL 12.5 MG in SODIUM CHLORIDE 0.9% 50 ML IV PRN (02:39)
[2022-02-28] MEDS ORDERED: MoRPHine SULFATE 2 MG/ML CARP IV STA (04:55)
[2022-02-28 06:24] LABS: Basophils # (auto) 0.01 K/uL (0-0.2); Basophils % (auto) 0.2 %; Eosinophils # (auto) 0.22 K/uL (0-0.5); Eosinophils % (auto) 4.5 %; Hematocrit (blood only) 34.7 % (37-47); Hemoglobin 10.9 g/dL (12.0-16.0); Immature Granulocytes # (auto) 0.02 K/uL (0.00-0.02); Immature Granulocytes % (auto) 0.4 %; Lymphocytes # (auto) 1.83 K/uL (1.2-3.4); Lymphocytes % (auto) 37.7 %; Mean Corpuscular Hemoglobin 29.1 pg (25-34); Mean Corpuscular Hgb Conc 31.4 g/dL (32-36); Mean Corpuscular Volume 92.5 fL (80-100); Mean Platelet Volume 9.9 fL (7.4-10.4); Monocytes # (auto) 0.58 K/uL (0.11-0.59); Monocytes % (auto) 11.9 %; Neutrophils % (auto) 45.3 %; Platelet Count 202 K/uL (130-400); RDW Coefficient of Variation 13.5 % (11.5-14.5); RDW Standard Deviation 45.6 fL (36.4-46.3); Red Blood Count 3.75 M/uL (4.2-5.4); White Blood Count 4.86 K/uL (4.8-10.8)
[2022-02-28 06:49] LABS: Albumin Globulin Ratio 1.2 (0.9-2); Albumin Level 3.3 gm/dl (3.4-5.0); BUN Creatinine Ratio 13.2 (10-20); Bilirubin,Total 0.4 mg/dl (0.2-1.0); Calcium 8.1 mg/dl (8.5-10.1); Creatinine Clr Calc Pharmacy 116.9 ml/min; Est GFR (African American) 118.2 ml/min; Globulin 2.7 gm/dl (2.5-4.0); Magnesium 2.3 mg/dl (1.7-2.4); Potassium 3.7 mmol/L (3.5-5.1)
[2022-02-28] MEDS: TOPIRAMATE 100 MG TAB PO SCH ×2 (08:02→20:49)
[2022-02-28] MEDS: DICYCLOMINE HCL 20 MG TAB PO PRN (08:02)
[2022-02-28] MEDS: ENOXAPARIN INJ 40 MG/0.4 ML SYR SQ SCH (08:02)
[2022-02-28] MEDS: PANTOprazole 40 MG in SYRINGE 0 ML IV SCH ×2 (08:02→20:49)
[2022-02-28] MEDS: ALPRAZolam 0.5 MG TABLET PO SCH (08:10)
[2022-02-28] MEDS: NORMOSOL-R 1,000 ML IV SCH ×2 (08:32→20:54)
[2022-02-28] MEDS: BUTALBITAL/ACETAMIN/CAFFEINE TAB PO PRN (10:32)
[2022-02-28] MEDS: ONDANSETRON INJ 2 MG/ML 2 ML VIAL IV PRN ×2 (12:15→20:48)
--- NOTE | 2022-02-28 14:45 | Hospitalist Progress Note ---
Date of Service February 28, 2022 Assessment & Plan (1) Sepsis: Plan: Patient presents with headache, bilateral flank and lower abdominal pain, and fever for past 3 days noted with tachycardia and hypotensive episode in the ER - - lactate negative, PCT elevated at 4, WBC mild leukopenia, febrile, CRP elevated at 15 -COVID-19 negative - HX of recent gastric bypass surgery 11/2021, here with negative CT abdomen/pelvis for any leaks or stranding - Pulmonary with calcified granulomas- without opacities or dyspnea- aspergillus and fungitell sent- previously on TPN for poor nutritional status and difficulty taking p.o. due to esophageal stricture status post recent gastric bypass surgery-stopped TPN approximately 3 weeks prior - PICC line remains in place but appears clean at insertion site- culture drawn from PICC- remove pending BC or persistent fevers. At risk for fungal infection due to previous TPN and indwelling PICC line -Does have headache but has a history of migraines and I feel this is a migraine induced by fever. She has no nuchal rigidity and looks too well to have a bacterial meningitis-no need for spinal tap at this time - Blood cultures x2 sets drawn-no growth to date -UA on admission shows ketones, nitrite, 2+ bilirubin, a lot of epithelial cells as well as WBC cells and 4+ bacteria along with calcium oxalate crystals-urine culture with pinpoint growth - MRSA swab negative - ECHO pending to look for valvular vegetation -Continue Rocephin for now 2 GM- broaden out if needed but currently responding with decrease in temp/HR/BP-fever seems to be resolving now -Check viral respiratory panel/bio fire-negative -Check Lyme titer-negative -Check Anaplasma smear-negative, Anaplasma DNA pending, however does not have elevated LFTs or low platelets so doubt anaplasmosis -Follow CBC, CMP, CRP, ESR, procalcitonin in the morning: these labs have been improving. -Patient remains afebrile. will remain on ceftriaxone. Patient does not want to have PICC line removed. Currently given patient's negative culture, and being afebrile. Also patient as been requiring fluids at home. Patient currently does not want to switch PICC line Ok to hold off removing PICC line, but this should be removed this month. (2) Migraine: Plan: Patient on Topamax for prophylaxis With severe migraine headache constant for the last 4 days since her febrile illness began Nonfocal neurological exam So far has tried Benadryl, started IV fluids, received IV magnesium, Tylenol, and Zofran with no relief -Avoid NSAIDs due to gastric bypass surgery -Gave trial of Fioricet today which helped significantly -Continue IV fluids -Continue Benadryl as needed, Phenergan as needed -Consider IV steroids only as a last resort as this would also put her at risk for anastomotic ulcers given her recent gastric bypass surgery -Hopefully as fevers resolve, migraine will also resolve, however she reports she had a month long severe migraine headache when she had COVID a year and a half ago -CT head was not done on admission, but as she improved with Fioricet and has a nonfocal neurological exam, I do not feel she needs at this time, but could consider brain imaging and neuro consult if headache not improving -patient continues to require fioricet intermittently, required a dose today. (3) H/O gastric bypass: Plan: Surgery was done at [facility] in [place] in 11/2021. She then had a revision with lysis of adhesions due to ongoing abdominal pains She had a month-long stay in [facility] in December for this revision and also had multiple dilations of a stricture near esophagus which was causing significant issues with p.o. intake and nutritional status She ended up on TPN but is now off of that for the last 3 weeks. 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 - repeat ECHO here shows mildly reduced LV function and global hypokinesis of the LV, EF is 40-45% - She has stopped previous disease modifying medications due to hypotension back in the fall and has not followed with cardiology in approximately 6 months Troponin here is negative x2 Follow daily weights, I's and O's (5) Complications of gastric bypass surgery: Plan: As above- required second surgery for lysis of adhesions and revision she reports - Remains with persistent nausea and decrease oral intake but can take soft foods-advance diet -Continue PPI but she prefers it to be IV at this time and I will increase to twice daily -Has chronic ongoing burning sensation in the epigastric region ever since her surgery-not new -Vitamin B1, and B6 levels are pending B12 and folate are normal (6) Iron deficiency anemia: Plan: Transferrin saturation low at 9% Needs IV iron but will not give at this time as she reports it makes her feel badly when she gets it Will need IV iron down the road if she cannot tolerate oral iron very well (7) Obesity: Plan: BMI 32.3-improving and has lost 40 pounds since her gastric bypass surgery 3 months ago (8) Hypokalemia: Plan: replaced. will recheck in AM. Plan: DVT prophylaxis-Lovenox Disposition-continued stay Admission and Anticipated Discharge Date Admission Date: February 25, 2022 Subjective Patient reports having multiple complaints. Chest pain, abdominal pain, headache. Currently she denies any symptoms at the moment. updated . Review of Systems Review of Systems: All systems reviewed & are unremarkable except as noted in HPI & below Physical Exam Constitutional: WD/WN, vitals as above Eyes: PERRL, conjunctivae normal, anicteric sclerae ENMT: external ear and nose normal, oropharynx normal Neck: trachea midline, no thyromegaly normal visual inspection; neck nontender and no nuchal rigidity Respiratory: normal respiratory effort, lungs clear to auscultation Cardiovascular: RRR, no murmur, no edema Chest (Breasts): Chest: normal inspection of chest Gastrointestinal (Abdomen): normal bowel sounds, soft, nontender, no hepatosplenomegaly Musculoskeletal: Extremities: extremities normal to inspection; no cyanosis and no clubbing Skin: no rashes, warm and dry Neurologic: moves all extremities and awake; no focal motor deficits Psychiatric: A+Ox3, euthymic affect Lymphatic: no lymphedema Results & Data Results & Data ([facility]) Vital Signs (Past 12 Hours) Vital Signs Temp Pulse Pulse Resp BP BP Pulse Ox 02/28/22 11:38 36.5 C 77 20 104/71 95 02/28/22 08:01 36.6 C 68 18 105/69 98 02/28/22 07:43 70 02/28/22 04:18 36.3 C L 71 18 109/73 96 PG Care Time/CCT Total # of Minutes Spent Total Time Spent with Patient: Total time spent is greater than 50% in coordination of care (as documented) at patient's floor/unit and/or counseling patient: Coding Level of Care Code 98842 Subseq Hosp Care Lvl 3 Diagnoses Sepsis A41.9 Migraine G43.909 H/O gastric bypass Z98.84 HFrEF (heart failure with reduced ejection fraction) I50.20 Complications of gastric bypass surgery K91.89; Y83.2 Iron deficiency anemia D50.9 Obesity E66.9 Hypokalemia E87.6 Time Spent (min) 35
[2022-02-28] MEDS: cefTRIAXone SODIUM 2,000 MG in DEXTROSE 5% 50 ML IV SCH (17:43)
[2022-02-28] MEDS: oxyCODONE HCL IR 5 MG TAB (IMMEDIATE RELEASE) PO PRN (18:33)
[2022-02-28] MEDS: ZOLPIDEM TARTRATE 10 MG TAB PO SCH (20:49)
[2022-03-01] MEDS: oxyCODONE HCL IR 5 MG TAB (IMMEDIATE RELEASE) PO PRN ×3 (02:19→18:06)
[2022-03-01] MEDS: ONDANSETRON INJ 2 MG/ML 2 ML VIAL IV PRN ×2 (06:17→19:34)
[2022-03-01 07:36] LABS: Basophils # (auto) 0.02 K/uL (0-0.2); Basophils % (auto) 0.3 %; Eosinophils % (auto) 3.5 %; Hematocrit (blood only) 37.4 % (37-47); Hemoglobin 11.8 g/dL (12.0-16.0); Immature Granulocytes # (auto) 0.02 K/uL (0.00-0.02); Immature Granulocytes % (auto) 0.3 %; Lymphocytes # (auto) 2.11 K/uL (1.2-3.4); Lymphocytes % (auto) 36.4 %; Mean Corpuscular Hemoglobin 29.1 pg (25-34); Mean Corpuscular Hgb Conc 31.6 g/dL (32-36); Mean Corpuscular Volume 92.1 fL (80-100); Mean Platelet Volume 10.1 fL (7.4-10.4); Monocytes # (auto) 0.61 K/uL (0.11-0.59); Monocytes % (auto) 10.5 %; Neutrophils # (auto) 2.83 K/uL (1.4-6.5); Platelet Count 252 K/uL (130-400); RDW Coefficient of Variation 13.5 % (11.5-14.5); RDW Standard Deviation 45.2 fL (36.4-46.3); Red Blood Count 4.06 M/uL (4.2-5.4); White Blood Count 5.79 K/uL (4.8-10.8)
[2022-03-01] MEDS: NORMOSOL-R 1,000 ML IV SCH ×2 (07:45→18:03)
[2022-03-01] MEDS: PANTOprazole 40 MG in SYRINGE 0 ML IV SCH (07:50)
[2022-03-01 08:00] LABS: Albumin Globulin Ratio 1.2 (0.9-2); Albumin Level 3.5 gm/dl (3.4-5.0); BUN Creatinine Ratio 10.9 (10-20); Bilirubin,Total 0.4 mg/dl (0.2-1.0); Calcium 8.7 mg/dl (8.5-10.1); Creatinine Clr Calc Pharmacy 123.7 ml/min; Est GFR (African American) 120.6 ml/min; Est GFR (Non-African American) 104.1 ml/min; Globulin 2.9 gm/dl (2.5-4.0); Magnesium 1.9 mg/dl (1.7-2.4); Phosphorus 3.9 mg/dl (2.5-4.9); Potassium 3.7 mmol/L (3.5-5.1); Total Protein 6.4 gm/dl (6.0-8.3)
[2022-03-01] MEDS: ENOXAPARIN INJ 40 MG/0.4 ML SYR SQ SCH (09:00)
[2022-03-01] MEDS: TOPIRAMATE 100 MG TAB PO SCH ×2 (09:00→09:04)
[2022-03-01] MEDS: ALPRAZolam 0.5 MG TABLET PO SCH (09:03)
[2022-03-01] MEDS ORDERED: GABAPENTIN 300 MG CAP PO SCH (11:45)
[2022-03-01] MEDS: PROMETHAZINE HCL 12.5 MG in SODIUM CHLORIDE 0.9% 50 ML IV PRN (12:02)
--- NOTE | 2022-03-01 14:39 | Ultrasound Report ---
US abdomen limited HISTORY: 51 years-old Female right lower quadrant ultrasound: ovary, appendix acute right lower quad rant abdominal pain COMPARISON: CT abdomen and pelvis 02/25/2022 TECHNIQUE: Multiple real-time sonographic images of the abdominal right lower quadrant were obtained assessing grayscale appearance and color flow FINDINGS: The appendix is not diagnostically visualized. The ovaries are not seen. The visualized urinary bladd er is unremarkable. The study is limited secondary to patient body habitus. IMPRESSION: Limited exam secondary to patient body habitus. Nonvisualization of the appendix. ACT 112: Negative or not required by law. The above report was generated using voice recognition software. It may contain grammatical, syntax o r spelling errors. Electronically signed by: Lino Mandujano M.D. 03/01/2022 2:38 PM
[2022-03-01] MEDS: cefTRIAXone SODIUM 2,000 MG in DEXTROSE 5% 50 ML IV SCH (17:32)
--- NOTE | 2022-03-01 18:42 | Discharge Summary ---
Date of Service March 01, 2022 Admission HPI Per Admitting Provider 51 YOF with medical history of: HFrEF/NICM, HTN, Obesity, ovarian cysts, MGUS. Patient comes to the EMD today for complaints of 3 days of fevers and abdominal pain/back pain. The patient states that this has been ongoing for the past 3 days and is associated with pain that strated in her lower back and then worked its way around the front of abdomen down to her groin. She is unsure if she has passed any kidney stones. She was evaluated in the EMD and upon preparedness for discharge she became tachycardic, had fever, and decrease BP. She was given 2.5 L of crystalloid, had blood cultures performed, and UA. She had routine labs performed that included blood culture x2 sets, UA, CXR, PCT, CT of abdomen and pelvis with contrast and CXR. Her lab work is notable for WBC of 4.4, BMP unremarkable, PCT 4.2, no lactate. UA notable for turbid appearance, LE- NIT, RBC, WBC 10-30 with > 30 EPis and 4+ bacteria. She was started on Rocephin 2 GM IV. Hospitalist was consulted for admission. Patient will be admitted to continue evaluate source of above as well as treat for current complicated UTI. Continue Rocephin for now. MRSA swab with recent extended hospital admissions. Overall we have no records available for review. The patient normally gets most of her care through [facility] and follows with cardiology at [place]. The patient most recently had [place]-en- Y gastric bypass surgery completed in [facility] in November 2021. She reports extended stay and re-operation secondary to strictures. This lead to her remaining to have difficulty swallowing and eating, remaining with pain in her esophagus and abdomen. She was discharged with TPN and IVF which, is managed through home health. She reports that about 3 weeks ago she has stopped her TPN. She remains with a PICC line to her left arm and that is ~2 months old. The site itself is without evidence of infection. Blood cultures were obtained from PICC as well as peripheral. She also endorses that she follows with cardiology for history of heart failure which she reports that her EF is 35% she was previously on BB, Entresto and this was stopped by her bryologist prior to her Gastric Bypass surgery. She also reports possible history of MGUS as well as workup for Lupus. 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 is: NEGATIVE Discharge Data Allergies Allergy/AdvReac Type Severity Reaction Status Date / Time amitriptyline Allergy Intermediate jittery, Unverified 02/25/22 12:01 restlessness, insomnia haloperidol [From Haldol] Allergy Intermediate agitation Unverified 02/25/22 12:01 latex Allergy Intermediate rash, Unverified 02/25/22 11:57 itching metoclopramide [From Reglan] Allergy Intermediate jittery, Unverified 02/25/22 12:01 restlessness, insomnia nortriptyline Allergy Intermediate jttery, Unverified 02/25/22 12:01 restlessness, insomnia prochlorperazine Allergy Intermediate jittery, Unverified 02/25/22 12:01 [From Compazine] restlessness, insomnia Consultations 02/25/22 16:44 ED Decision to Admit Stat Ordered Studies 02/25/22 10:04 CT abd pelvis IV con only Stat 03/01/22 11:35 US abdomen limited Routine Hospital Course (1) Sepsis: Patient presents with headache, bilateral flank and lower abdominal pain, and fever for past 3 days noted with tachycardia and hypotensive episode in the ER - - lactate negative, PCT elevated at 4, WBC mild leukopenia, febrile, CRP elevated at 15 -COVID-19 negative - HX of recent gastric bypass surgery 11/2021, here with negative CT abdomen/pelvis for any leaks or stranding - Pulmonary with calcified granulomas- without opacities or dyspnea- aspergillus and fungitell sent- previously on TPN for poor nutritional status and difficulty taking p.o. due to esophageal stricture status post recent gastric bypass surgery-stopped TPN approximately 3 weeks prior - PICC line remains in place but appears clean at insertion site- culture drawn from PICC- remove pending BC or persistent fevers. At risk for fungal infection due to previous TPN and indwelling PICC line -Does have headache but has a history of migraines and I feel this is a migraine induced by fever. She has no nuchal rigidity and looks too well to have a bacterial meningitis-no need for spinal tap at this time - Blood cultures x2 sets drawn-no growth to date -UA on admission shows ketones, nitrite, 2+ bilirubin, a lot of epithelial cells as well as WBC cells and 4+ bacteria along with calcium oxalate crystals-urine culture with pinpoint growth - MRSA swab negative - ECHO pending to look for valvular vegetation -Continue Rocephin for now 2 GM- broaden out if needed but currently responding with decrease in temp/HR/BP-fever seems to be resolving now -Check viral respiratory panel/bio fire-negative -Check Lyme titer-negative -Check Anaplasma smear-negative, Anaplasma DNA pending, however does not have elevated LFTs or low platelets so doubt anaplasmosis -Follow CBC, CMP, CRP, ESR, procalcitonin in the morning: these labs have been improving. -Patient remains afebrile. will remain on ceftriaxone. Patient does not want to have PICC line removed. Currently given patient's negative culture, and being afebrile. Also patient as been requiring fluids at home. Patient currently does not want to switch PICC line Ok to hold off removing PICC line, but this should be removed this month. (2) Migraine: Patient on Topamax for prophylaxis With severe migraine headache constant for the last 4 days since her febrile illness began Nonfocal neurological exam So far has tried Benadryl, started IV fluids, received IV magnesium, Tylenol, and Zofran with no relief -Avoid NSAIDs due to gastric bypass surgery -Gave trial of Fioricet today which helped significantly -Continue IV fluids -Continue Benadryl as needed, Phenergan as needed -Consider IV steroids only as a last resort as this would also put her at risk for anastomotic ulcers given her recent gastric bypass surgery -Hopefully as fevers resolve, migraine will also resolve, however she reports she had a month long severe migraine headache when she had COVID a year and a half ago -CT head was not done on admission, but as she improved with Fioricet and has a nonfocal neurological exam, I do not feel she needs at this time, but could consider brain imaging and neuro consult if headache not improving -patient continues to require fioricet intermittently, required a dose today. (3) H/O gastric bypass: Surgery was done at [facility] in [place] in 11/2021. She then had a revision with lysis of adhesions due to ongoing abdominal pains She had a month-long stay in [facility] in December for this revision and also had multiple dilations of a stricture near esophagus which was causing significant issues with p.o. intake and nutritional status She ended up on TPN but is now off of that for the last 3 weeks. She still however gives herself IV fluids every day at home - not on any other vitamin supplementation other than MVI- she reports not being able to take -Antiemetics as needed Is iron deficient-needs iron replacement but would not give IV iron at this time during acute illness (4) HFrEF (heart failure with reduced ejection fraction): By report from patient -with a history of likely NICM with reported EF at 35% previously as per patient. 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 - repeat ECHO here shows mildly reduced LV function and global hypokinesis of the LV, EF is 40-45% - She has stopped previous disease modifying medications due to hypotension back in the fall and has not followed with cardiology in approximately 6 months Troponin here is negative x2 Follow daily weights, I's and O's (5) Complications of gastric bypass surgery: As above- required second surgery for lysis of adhesions and revision she reports - Remains with persistent nausea and decrease oral intake but can take soft foods-advance diet -Continue PPI but she prefers it to be IV at this time and I will increase to twice daily -Has chronic ongoing burning sensation in the epigastric region ever since her surgery-not new -Vitamin B1, and B6 levels are pending B12 and folate are normal (6) Iron deficiency anemia: Transferrin saturation low at 9% Needs IV iron but will not give at this time as she reports it makes her feel badly when she gets it Will need IV iron down the road if she cannot tolerate oral iron very well (7) Obesity: BMI 32.3-improving and has lost 40 pounds since her gastric bypass surgery 3 months ago (8) Hypokalemia: replaced. will recheck in AM. DVT prophylaxis-Lovenox Disposition-continued stay Discharge Plan Discharge Items Patient Disposition: Home - Self-Care Reason For Visit: SEPSIS, ABDOMINAL PAIN Discharge Diagnosis: sepsis Condition on Discharge: Good Activity: Resume your previous activity Non-emergency contact: Primary Care Provider Call non-emergency contact if: you have any medication questions Follow-up/Referrals: Summer Villegas [Primary Care Provider] - Diet: Other - See Diet Comment Diet Comment: resume your previous diet as tolerated Addtl Attending Provider Instructions: You have been hospitalized for an acute medical problem. During your stay at [facility], we have made an effort to correct the problem that brought you to the hospital while keeping you as comfortable as possible. Medications were used to bring your condition under control and your discharge instructions will include directions for any medications you should take after leaving the hospital. Please make sure you see your Primary Care Provider as part of your follow up plan. You have been treated for urosepsis. Thankfully your blood cultures have been negative. You have responded to treatment and your fevers have subsided. Will recommend to continue on cefidinir 300 mg twice a day starting on 03/02/22 AT 6pm. will recommend followup with your PCP and specialists within this month. It was a pleasure to take care of you. I wish you well and I hope you can enjoy your vacation. Best regards, Kendrick Mc MD Pending Studies at Discharge: No Stand-Alone Forms: My [facility], Smoking Cessation Medications and DC Order Prescriptions: New oxycodone-acetaminophen [Percocet] 5-325 mg tablet 1 tab PO Q6H PRN (Reason: pain) Qty: 14 RF: 0 cefdinir 300 mg capsule 300 mg PO BID Qty: 18 RF: 0 Continued nitroglycerin 0.3 mg Tablet, Sublingual 0.3 mg sublingual DIRECTED PRN (Reason: Angina) RF: 0 sumatriptan succinate 100 mg tablet 100 mg PO DIRECTED PRN (Reason: Migraine Headache) RF: 0 pantoprazole 20 mg tablet,delayed release (DR/EC) 20 mg PO BID RF: 0 alprazolam 0.5 mg tablet 0.5 mg PO DAILY RF: 0 dicyclomine [Bentyl] 20 mg Tablet 20 mg PO BID PRN (Reason: Gi Upset) RF: 0 hyoscyamine sulfate 0.125 mg tablet, sublingual 0.125 mg sublingual DAILY PRN (Reason: Nausea) RF: 0 gabapentin 300 mg capsule 600 mg PO BID RF: 0 epinephrine [Epi E-Z Pen] 0.3 mg/0.3 mL Auto-Injector 0.3 mg IM Q4H PRN (Reason: Allergic Symptoms) RF: 0 zolpidem 10 mg tablet 10 mg PO HS RF: 0 scopolamine base 1 mg over 3 days patch 3 day 1 patch topical Q72H PRN (Reason: Nausea) RF: 0 ondansetron 4 mg tablet,disintegrating 4 mg translingual DIRECTED PRN (Reason: Nausea) RF: 0 topiramate 100 mg tablet 100 mg PO BID RF: 0 Cathflo Activase 2 mg recon soln 2 mg INTRA-CATHETER DIRECTED RF: 0 oxycodone 5 mg tablet 5 mg PO DIRECTED PRN (Reason: Pain) RF: 0 Flintstones Multivitamin 300 mcg Tablet,Chewable 1 tab PO DAILY RF: 0 Discontinued furosemide 20 mg Tablet 20 mg PO BID RF: 0 metoprolol tartrate 25 mg tablet 25 mg PO BID RF: 0 Entresto 24-26 mg tablet 1 tab PO BID RF: 0 Discharge Orders: Discharge Order (Routine); Ordered 03/01/22 Ordered By: Kendrick Mc Admission Data Admit Date/Time: 02/25/22 17:48 Attending Provider: Kendrick Mc Admit Provider: Kendrick Mc Primary Care Provider: Summer Villegas Other Providers: Kendrick Mc ; [facility] Coding Diagnoses Sepsis A41.9 Migraine G43.909 H/O gastric bypass Z98.84 HFrEF (heart failure with reduced ejection fraction) I50.20 Complications of gastric bypass surgery K91.89; Y83.2 Iron deficiency anemia D50.9 Obesity E66.9 Hypokalemia E87.6
[2022-03-01] MEDS: BUTALBITAL/ACETAMIN/CAFFEINE TAB PO PRN (19:47)
[2022-03-02 17:56] LABS: Aspergillus Ag Index 0.04 (<0.50); Aspergillus Antigen, Serum Not Detected (Not Detected)
[2022-03-02 18:46] LABS: Fungitell (1-3)-B-D-Glucan <31 pg/mL
== END 2022-03-01 20:10 | disposition home health service (06) ==
LOC: ED 09:41 → SUATTDRO 17:48 → INTOOBSV 17:48 → EDINP 17:48 → 2W 18:00